=== PATIENT | female | born 1945 ===

== ENCOUNTER 2020-11-25 22:23 | Inpatient (IN) | payer SELFPAY ==
[2020-11-25] MEDS ORDERED: ASPIRIN 325 MG TAB PO ONE (22:52)
--- NOTE | 2020-11-25 23:18 | XRay Report ---
XR chest 1V ap INDICATION / CLINICAL INFORMATION: SOB, CP. COMPARISON: None available. FINDINGS: SUPPORT DEVICES: None. HEART /PULMONARY VASCULATURE: No significant abnormality. LUNGS / PLEURA: Diminished lung volumes. Linear opacities within the left midlung likely reflect atel ectasis. There is no focal airspace consolidation. No pleural effusion. No pneumothorax. ADDITIONAL FINDINGS: No significant additional findings. IMPRESSION: Diminished lung volumes with atelectasis. No acute cardiopulmonary abnormality. Signer Name: Ryder Gerard MD Signed: 11/25/2020 11:14 PM Workstation Name: [id number]
[2020-11-25 23:22] LABS: Basophils % (Auto) 0.4 % (0.0-1.8); Eosinophils % (Auto) 0.4 % (0.0-4.3); Hematocrit 30.3 % (30.3-42.9); Hemoglobin 9.6 gm/dl (10.1-14.3); Lymphocytes % (Auto) 12.8 % (13.4-35.0); Mean Corpuscular HGB Conc 32 % (30-34); Mean Corpuscular Volume 98 fl (79-97); Monocytes # (Auto) 0.6 K/mm3 (0.0-0.8); Monocytes % (Auto) 8.4 % (0.0-7.3); Platelet Count 389 K/mm3 (140-440); Red Blood Count 3.11 M/mm3 (3.65-5.03); Red Cell Distribution Width 17.2 % (13.2-15.2)
[2020-11-25 23:38] LABS: Alanine Aminotransferase 297 units/L (7-56); Albumin 3.8 g/dL (3.9-5); BUN/Creatinine Ratio 22; Blood Urea Nitrogen 38 mg/dL (7-17); Hemolysis Index 0
--- NOTE | 2020-11-26 01:05 | Emergency Department Report ---
ED Chest Pain HPI - General Chief Complaint: Chest Pain Stated Complaint: VOMITING/JAMEY/CHEST PAIN Time Seen by Provider: 11/26/20 00:31 Source: patient Mode of arrival: Ambulatory Limitations: No Limitations - History of Present Illness Initial Comments: 75-year-old female, history of hypertension, diabetes, A. fib, presents to the ED with chest pain. Patient reports onset last night around 9 PM while at rest. Patient also reports associated shortness of breath. Patient has significant swelling to bilateral feet and lower legs. Patient was seen here 3 days ago for A. fib with RVR. Patient currently on Eliquis. She was discharged from the ED after achieving rate control Cardizem. She was discharged with a prescription for Cardizem. Patient returns tonight with sharp, pleuritic chest pain. Patient denies any palpitations. Patient is visiting from [place]. 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 Patient has been fully vaccinated against COVID-19. Patient's previous visit is under the name: ARYA RAMIREZ MD Complaint: chest pain -: This evening Onset: during rest Pain Location: left chest Pain Radiation: none Severity: mild Severity scale (0 -10): 5 Quality: sharp Consistency: intermittent Improves With: nothing Worsens With: inspiration re: dyspnea. denies: nausea, vomting, diaphoresis Other Symptoms: leg swelling. denies: cough, fever - Related Data Home Medications Medication Instructions Recorded Confirmed Last Taken Amiodarone [Cordarone 200 MG TAB] 100 mg PO DAILY 11/26/20 11/26/20 Unknown Apixaban [Eliquis] 5 mg PO DAILY 11/26/20 11/26/20 Unknown Furosemide [Lasix] 20 mg PO QDAY 11/26/20 11/26/20 Unknown Nebivolol (Nf) [Bystolic (Nf)] 2.5 mg PO DAILY 11/26/20 11/26/20 Unknown Telmisartan 40 mg PO DAILY 11/26/20 11/26/20 Unknown dilTIAZem HCL [Diltiazem HCl] 30 mg PO Q8H 11/26/20 11/26/20 Unknown glyBURIDE [Diabeta] 5 mg PO DAILY 11/26/20 11/26/20 Unknown metFORMIN [Glucophage] 850 mg PO BID 11/26/20 11/26/20 Unknown Allergies Allergy/AdvReac Type Severity Reaction Status Date / Time No Known Allergies Allergy Unverified 11/25/20 22:43 Heart Score - HEART Score History: Moderately suspicious EKG: Normal Age: > 65 Risk factors: > 3 risk factors or hx of atherosclerotic disease Troponin: < normal limit HEART Score: 5 - EKG Read Time Time EKG Completed: 22:52 EKG Read Time: 22:57 ED Review of Systems ROS: Stated complaint: VOMITING/JAMEY/CHEST PAIN Other details as noted in HPI Comment: All other systems reviewed and negative Constitutional: denies: fever Respiratory: shortness of breath. denies: cough Cardiovascular: chest pain, edema. denies: palpitations ED Past Medical Hx - Past Medical History Previous Medical History?: Yes Hx Hypertension: Yes Hx Diabetes: Yes Additional medical history: arrythmia - Surgical History Past Surgical History?: Yes Additional Surgical History: Hysterectomy - Medications Home Medications: Home Medications Medication Instructions Recorded Confirmed Last Taken Type Amiodarone [Cordarone 200 MG TAB] 100 mg PO DAILY 11/26/20 11/26/20 Unknown History Apixaban [Eliquis] 5 mg PO DAILY 11/26/20 11/26/20 Unknown History Furosemide [Lasix] 20 mg PO QDAY 11/26/20 11/26/20 Unknown History Nebivolol (Nf) [Bystolic (Nf)] 2.5 mg PO DAILY 11/26/20 11/26/20 Unknown History Telmisartan 40 mg PO DAILY 11/26/20 11/26/20 Unknown History dilTIAZem HCL [Diltiazem HCl] 30 mg PO Q8H 11/26/20 11/26/20 Unknown History glyBURIDE [Diabeta] 5 mg PO DAILY 11/26/20 11/26/20 Unknown History metFORMIN [Glucophage] 850 mg PO BID 11/26/20 11/26/20 Unknown History ED Physical Exam - General Limitations: No Limitations General appearance: alert, in no apparent distress - Head Head exam: Present: atraumatic, normocephalic - Eye Eye exam: Present: normal appearance, EOMI - ENT ENT exam: Present: mucous membranes moist - Neck Neck exam: Present: normal inspection - Respiratory Respiratory exam: Present: normal lung sounds bilaterally, other (Slight tachypneic) - Cardiovascular Cardiovascular Exam: Present: regular rate, irregular rhythm - GI/Abdominal GI/Abdominal exam: Present: soft. Absent: distended, tenderness - Extremities Exam Extremities exam: Present: other (2+ pitting edema bilateral lower legs) - Neurological Exam Neurological exam: Present: alert, oriented X3 - Psychiatric Psychiatric exam: Present: normal affect, normal mood - Skin Skin exam: Present: warm, dry, intact, normal color ED Course Vital Signs 11/25/20 11/26/20 11/26/20 22:43 00:37 01:23 Temperature 97.9 F 97.9 F Pulse Rate 50 L 60 Respiratory 26 H 20 20 Rate Blood Pressure 102/55 97/64 [Right] O2 Sat by Pulse 97 99 99 Oximetry 11/26/20 02:18 Temperature Pulse Rate 75 Respiratory 20 Rate Blood Pressure 125/71 [Right] O2 Sat by Pulse 99 Oximetry - Reevaluation(s) Reevaluation #1: 11/26/20 01:08 BUN and creatinine were 31 and 0.9 on 11/22/2020. Reevaluation #2: 11/26/20 02:14 VQ scan ordered. [facility] [place] Med tech called; states meds for VQ scan expires at 3 AM, will order more. Pt likely won't be scanned until around 6 AM. ED Medical Decision Making - Lab Data Result diagrams: 11/25/20 22:55 11/26/20 01:09 - EKG Data -: EKG Interpreted by [place] EKG shows normal: QRS complexes, ST-T waves Rate: normal - EKG Data Interpretation: other (Atrial fibrillation) - Radiology Data Radiology results: report reviewed, image reviewed - Medical Decision Making 75-year-old female presents to ED with chest pain and shortness of breath. EKG shows A. fib, normal rate. Patient has history of A. fib. Patient reported sharp pleuritic chest pain. D-dimer elevated. Patient also has some acute renal failure, so CTA chest contraindicated. VQ scan was ordered, however unable to be performed due to nuclear medicine technologist having to order more medication for the study. It will be done later in the morning. Troponin within normal limits. Patient also has some elevations in her LFTs, no known liver disease. She also has an INR of 3. Potassium is 6.1, patient has been given hyperkalemia treatment protocol. Patient shows evidence of volume overload, with elevated BNP and significant peripheral edema. She will be admitted by hospitalist, Dr. Medina, for further management. - Differential Diagnosis ACS, CHF, PE Critical care attestation.: If time is entered above; I have spent that time in minutes in the direct care of this critically ill patient, excluding procedure time. ED Disposition Clinical Impression: Acute chest pain, Acute renal failure, Hyperkalemia, Coagulopathy, Elevated liver enzymes Disposition: OP ADMIT IP TO THIS HOSP Is pt being admited?: Yes Condition: Stable Time of Disposition: 02:29
[2020-11-26 01:31] LABS: INR 3.01 (0.87-1.13); Partial Thromboplastin Time 30.8 Sec. (24.2-36.6)
[2020-11-26] MEDS ORDERED: INSULIN REGULAR, HUMAN 100 UNITS/1 ML IV ONE (02:04)
[2020-11-26] MEDS ORDERED: CALCIUM GLUCONATE 1,000 MG in SODIUM CHLORIDE 0.9% 100 ML IV ONE (02:04)
[2020-11-26] MEDS ORDERED: DEXTROSE 50% IN WATER (25GM) 50 ML SYRINGE IV ONE (02:04)
[2020-11-26] MEDS ORDERED: SODIUM POLYSTYRENE 15 GM/60 ML ORAL LIQD PO ONE (02:05)
[2020-11-26] MEDS ORDERED: traMADol 50 MG TAB PO PRN (02:29)
[2020-11-26] MEDS ORDERED: DEXTROSE 50% IN WATER (25GM) 50 ML SYRINGE IV PRN (02:29)
[2020-11-26] MEDS ORDERED: MORPHINE 2 MG/1 ML INJ IV PRN (02:29)
[2020-11-26] MEDS ORDERED: ONDANSETRON 4 MG/2 ML INJ IV PRN (02:29)
[2020-11-26] MEDS ORDERED: ACETAMINOPHEN 325 MG TAB PO PRN ×2 (02:29)
--- NOTE | 2020-11-26 02:41 | History and Physical Report ---
History of Present Illness Date of examination: 11/26/20 Date of admission: 11/26/2020 Chief complaint: Chest pain abdominal pain History of present illness: 75-year-old female with past medical history of hypertension, diabetes, A. fib, presents to the ED with chest pain since 9 PM while at rest. Patient also reports associated shortness of breath and significant swelling to bilateral feet and lower legs. Patient was seen here 3 days ago for A. fib with RVR. Patient currently on Eliquis. She was discharged from the ED after achieving rate control Cardizem. She was discharged with a prescription for Cardizem. Patient returns tonight with sharp, pleuritic chest pain. Patient denies any palpitations. Patient is visiting from [place]. 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 Patient has been fully vaccinated against COVID-19. Patient's previous visit is under the name: ARYA RAMIREZ Past History Past Medical History: diabetes, hypertension, other (Arrhythmia) Medications and Allergies Allergies Allergy/AdvReac Type Severity Reaction Status Date / Time No Known Allergies Allergy Unverified 11/25/20 22:43 Home Medications Medication Instructions Recorded Confirmed Last Taken Type Apixaban [Eliquis] 5 mg PO DAILY 11/26/20 11/26/20 Unknown History Active Meds: Active Medications Acetaminophen (Acetaminophen 325 Mg Tab) 650 mg PO Q4H PRN PRN Reason: Pain MILD(1-3)/Fever >100.5/LOPEZ Acetaminophen (Acetaminophen 325 Mg Tab) 650 mg PO Q6H PRN PRN Reason: Pain, Mild (1-3) Albuterol/Ipratropium (Ipratropium/Albuterol Sulfate 3 Ml Ampul.Neb) 1 ampul IH Q6HRT [facility] Aspirin (Aspirin Ec 325 Mg Tab) 325 mg PO QDAY CARLEEN Atorvastatin Calcium (Atorvastatin 40 Mg Tab) 40 mg PO QHS [facility] Dextrose (Dextrose 50% In Water (25gm) 50 Ml Syringe) 50 ml IV Q30MIN PRN; Protocol PRN Reason: Hypoglycemia Insulin Human Lispro (Insulin Lispro 100 Unit/Ml) 0 unit SUB-Q ACHS CARLEEN; Protocol Morphine Sulfate (Morphine 2 Mg/1 Ml Inj) 2 mg IV Q4H PRN PRN Reason: Pain, Moderate (4-6) Ondansetron HCl (Ondansetron 4 Mg/2 Ml Inj) 4 mg IV Q8H PRN PRN Reason: Nausea And Vomiting Pantoprazole Sodium (Pantoprazole 40 Mg Tab) 40 mg PO QDAY CARLEEN Sodium Chloride (Sodium Chloride 0.9% 10 Ml Flush Syringe) 10 ml IV BID ACRLEEN Sodium Chloride (Sodium Chloride 0.9% 10 Ml Flush Syringe) 10 ml IV PRN PRN PRN Reason: LINE FLUSH Sodium Chloride (Sodium Chloride 0.9% 10 Ml Flush Syringe) 10 ml IV PRN PRN PRN Reason: LINE FLUSH Sodium Polystyrene Sulfonate (Sodium Polystyrene 15 Gm/60 Ml Oral Liqd) 30 gm PO Q4H CARLEEN Stop: 11/26/20 11:01 Tramadol HCl (Tramadol 50 Mg Tab) 50 mg PO Q6H PRN PRN Reason: Pain, Moderate (4-6) Review of Systems Cardiovascular: chest pain, edema, shortness of breath, dyspnea on exertion Respiratory: shortness of breath, dyspnea on exertion Gastrointestinal: abdominal pain Exam - Constitutional Vitals: Temp Pulse Resp BP Pulse Ox 97.9 F 75 20 125/71 99 11/26/20 00:37 11/26/20 02:18 11/26/20 02:18 11/26/20 02:18 11/26/20 02:18 General appearance: Present: no acute distress, well-nourished - EENT Eyes: Present: PERRL ENT: hearing intact, clear oral mucosa - Neck Neck: Present: supple, normal ROM - Respiratory Respiratory effort: normal Respiratory: bilateral: diminished - Cardiovascular Heart Sounds: Present: S1 & S2. Absent: rub, click - Extremities Extremities: pulses symmetrical Extremity abnormal: edema Peripheral Pulses: within normal limits - Abdominal General gastrointestinal: Present: soft, non-tender, non-distended, normal bowel sounds Female genitourinary: Present: normal - Integumentary Integumentary: Present: clear, warm, dry - Musculoskeletal Musculoskeletal: gait normal, strength equal bilaterally - Psychiatric Psychiatric: appropriate mood/affect, intact judgment & insight - Neurologic Neurologic: CNII-XII intact, moves all extremities HEART Score - HEART Score Troponin: Troponin T < 0.010 ng/mL (0.00-0.029) 11/26/20 01:42 Results - Labs CBC & Chem 7: 11/25/20 22:55 11/26/20 01:09 Labs: Laboratory Last Values WBC 7.5 K/mm3 (4.5-11.0) 11/25/20 22:55 RBC 3.11 M/mm3 (3.65-5.03) L 11/25/20 22:55 Hgb 9.6 gm/dl (10.1-14.3) L 11/25/20 22:55 Hct 30.3 % (30.3-42.9) 11/25/20 22:55 MCV 98 fl (79-97) H 11/25/20 22:55 MCH 31 pg (28-32) 11/25/20 22:55 MCHC 32 % (30-34) 11/25/20 22:55 RDW 17.2 % (13.2-15.2) H 11/25/20 22:55 Plt Count 389 K/mm3 (140-440) 11/25/20 22:55 Lymph % (Auto) 12.8 % (13.4-35.0) L 11/25/20 22:55 [place] % (Auto) 8.4 % (0.0-7.3) H 11/25/20 22:55 Eos % (Auto) 0.4 % (0.0-4.3) 11/25/20 22:55 Baso % (Auto) 0.4 % (0.0-1.8) 11/25/20 22:55 Lymph # (Auto) 1.0 K/mm3 (1.2-5.4) L 11/25/20 22:55 [place] # (Auto) 0.6 K/mm3 (0.0-0.8) 11/25/20 22:55 Eos # (Auto) 0.0 K/mm3 (0.0-0.4) 11/25/20 22:55 Baso # (Auto) 0.0 K/mm3 (0.0-0.1) 11/25/20 22:55 Seg Neutrophils % 78.0 % (40.0-70.0) H 11/25/20 22:55 Seg Neutrophils # 5.9 K/mm3 (1.8-7.7) 11/25/20 22:55 PT 31.4 Sec. (12.2-14.9) H 11/26/20 01:09 INR 3.01 (0.87-1.13) H 11/26/20 01:09 APTT 30.8 Sec. (24.2-36.6) 11/26/20 01:09 D-Dimer 5721.78 ng/mlDDU (0-234) H 11/26/20 01:09 Sodium 131 mmol/L (137-145) L 11/25/20 22:55 Potassium 6.1 mmol/L (3.6-5.0) H* 11/26/20 01:09 Chloride 95.5 mmol/L (98-107) L 11/25/20 22:55 Carbon Dioxide 14 mmol/L (22-30) L 11/25/20 22:55 Anion Gap 28 mmol/L 11/25/20 22:55 BUN 38 mg/dL (7-17) H 11/25/20 22:55 Creatinine 1.7 mg/dL (0.6-1.2) H 11/25/20 22:55 Estimated GFR 29 ml/min 11/25/20 22:55 BUN/Creatinine Ratio 22 % 11/25/20 22:55 Glucose 165 mg/dL (65-100) H 11/25/20 22:55 Calcium 8.0 mg/dL (8.4-10.2) L 11/25/20 22:55 Total Bilirubin 1.00 mg/dL (0.1-1.2) 11/25/20 22:55 AST 271 units/L (5-40) H 11/25/20 22:55 ALT 297 units/L (7-56) H 11/25/20 22:55 Alkaline Phosphatase 161 units/L (35-129) H 11/25/20 22:55 Troponin T < 0.010 ng/mL (0.00-0.029) 11/26/20 01:42 NT-Pro-B Natriuret Pep 4891 pg/mL (0-900) H 11/26/20 01:09 Total Protein 6.4 g/dL (6.3-8.2) 11/25/20 22:55 Albumin 3.8 g/dL (3.9-5) L 11/25/20 22:55 Albumin/Globulin Ratio 1.5 % 11/25/20 22:55 - Imaging and Cardiology Chest x-ray: report reviewed Assessment and Plan VTE prophylaxis?: Chemical Plan of care discussed with patient/family: Yes - Patient Problems (1) Acute coronary syndrome Status: Acute Plan to address problem: Admit the patient to the medical floor telemetry. Aspirin 81 mg p.o. daily. Lipitor 40 mg p.o. daily. Nitroglycerin as needed. Serial cardiac enzyme. Echocardiogram. Cardiology consult (2) Acute renal failure Status: Acute Plan to address problem: Avoid nephrotoxic drug. Renally dose medication. Reconsult nephrology for evaluation. Recheck BMP in the morning (3) Coagulopathy Status: Acute Plan to address problem: Most likely secondary to Eliquis. We will monitor the patient closely (4) Hyperkalemia Status: Acute Plan to address problem: Patient got insulin 10 units IV x1 dose D50 1 ampoule IV x1 dose calcium gluconate 1 amp/1 g IV x1 dose. Kayexalate 30 g p.o. every 4 hours x3 dose. Nephrology consulted repeat BMP in the morning (5) Elevated liver enzymes Status: Acute Plan to address problem: We will monitor the patient closely repeat LFT in the morning. GI consult (6) Diabetes Status: Acute Plan to address problem: Humalog sliding scale moderate dose Accu-Chek before meals and at bedtime. Diabetic education. We will monitor the patient closely (7) Abdominal pain Status: Acute Plan to address problem: Protonix 40 mg p.o. daily. Zofran 4 mg IV every 6 hours as needed. Will consult GI for evaluation (8) DVT prophylaxis Status: Acute Plan to address problem: Patient is on Eliquis for DVT prophylaxis. Protonix 40 mg p.o. daily for GI prophylaxis. Patient is a full code
[2020-11-26] MEDS: FUROSEMIDE 20 MG/2 ML INJ IV ONE ×2 (03:21→04:32)
[2020-11-26 04:45] LABS: Basophils % (Auto) 0.3 % (0.0-1.8); Hematocrit 27.3 % (30.3-42.9); Hemoglobin 8.7 gm/dl (10.1-14.3); Lymphocytes # (Auto) 0.5 K/mm3 (1.2-5.4); Lymphocytes % (Auto) 6.3 % (13.4-35.0); Mean Corpuscular HGB Conc 32 % (30-34); Mean Corpuscular Volume 98 fl (79-97); Monocytes # (Auto) 0.6 K/mm3 (0.0-0.8); Platelet Count 346 K/mm3 (140-440); Red Blood Count 2.79 M/mm3 (3.65-5.03); Red Cell Distribution Width 17.1 % (13.2-15.2)
[2020-11-26] MEDS: SODIUM POLYSTYRENE 15 GM/60 ML ORAL LIQD PO SCH ×3 (05:50→12:58)
--- NOTE | 2020-11-26 07:49 | Nuclear Medicine Report ---
Perfusion Scan HISTORY: chest pain. TECHNIQUE: Patient was given 5.5 mCi of technetium MAA. COMPARISON: Chest x-ray from yesterday FINDINGS: Normal symmetric perfusion bilaterally. IMPRESSION: Unremarkable exam. Signer Name: Miguel Mendoza MD Signed: 11/26/2020 7:45 AM Workstation Name: [id number]
[2020-11-26] MEDS: INSULIN LISPRO 100 UNIT/ML SUB-Q SCH ×4 (08:00→22:09)
[2020-11-26] MEDS: IPRATROPIUM/ALBUTEROL SULFATE 3 ML AMPUL.NEB IH SCH ×3 (08:42→21:25)
--- NOTE | 2020-11-26 09:52 | Electrocardiograph Report ---
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
[2020-11-26] MEDS ORDERED: ASPIRIN 81 MG TAB CHEW PO SCH (10:00)
[2020-11-26] MEDS ORDERED: CALCIUM CHLORIDE 1,000 MG/10 ML SYRINGE IV ONE (10:09)
[2020-11-26] MEDS ORDERED: SODIUM BICARB 8.4% 50 MEQ/50 ML SYRINGE IV SCH (10:30)
--- NOTE | 2020-11-26 10:32 | Gastroenterology Consultation ---
History of Present Illness - Reason for Consult Consult date: 11/26/20 Anemia, Abnl LFTs Requesting physician: LE SANCHEZ - History of Present Illness The patient has been to the ER twice in the past week for chest pain/A fib with RVR. She has stable labs 3 days apart, but was noted to have abnl LFTs as well as mild anemia. She denies RUQ pain, N/V, anorexia, liver disease, jaundice, blood in her stools, or hematemesis. She says she has no weight loss. There is no hx of bowel surgery or CCY. She is not a drinker. She is on new diltiazem, but this was started after elevated LFTs. She has had no imaging or hepatitis studies in the computer system (is under 2 different names). Past History Past Medical History: atrial fib, diabetes, hypertension, other (Arrhythmia) Past Surgical History: No surgical history Social history: denies: smoking, alcohol abuse Family history: no significant family history Medications and Allergies Allergies Allergy/AdvReac Type Severity Reaction Status Date / Time No Known Allergies Allergy Unverified 11/25/20 22:43 Home Medications Medication Instructions Recorded Confirmed Last Taken Type Amiodarone [Cordarone 200 MG TAB] 100 mg PO DAILY 11/26/20 11/26/20 Unknown History Apixaban [Eliquis] 5 mg PO DAILY 11/26/20 11/26/20 Unknown History Furosemide [Lasix] 20 mg PO QDAY 11/26/20 11/26/20 Unknown History Nebivolol (Nf) [Bystolic (Nf)] 2.5 mg PO DAILY 11/26/20 11/26/20 Unknown History Telmisartan 40 mg PO DAILY 11/26/20 11/26/20 Unknown History dilTIAZem HCL [Diltiazem HCl] 30 mg PO Q8H 11/26/20 11/26/20 Unknown History glyBURIDE [Diabeta] 5 mg PO DAILY 11/26/20 11/26/20 Unknown History metFORMIN [Glucophage] 850 mg PO BID 11/26/20 11/26/20 Unknown History Active Meds: Active Medications Acetaminophen (Acetaminophen 325 Mg Tab) 650 mg PO Q4H PRN PRN Reason: Pain MILD(1-3)/Fever >100.5/LOPEZ Albuterol/Ipratropium (Ipratropium/Albuterol Sulfate 3 Ml Ampul.Neb) 1 ampul IH Q6HRT [facility] Last Admin: 11/26/20 08:42 Dose: 1 ampul Documented by: Aspirin (Aspirin 81 Mg Tab Chew) 81 mg PO QDAY [facility] Dextrose (Dextrose 50% In Water (25gm) 50 Ml Syringe) 0 ml IV Q30MIN PRN; Protocol PRN Reason: Hypoglycemia Furosemide (Furosemide 40 Mg/4 Ml Inj) 40 mg IV 0600,1800 [facility] Calcium Chloride 1,000 mg/ (Sodium Chloride) 110 mls @ 660 mls/hr IV ONCE ONE Stop: 11/26/20 11:09 Insulin Human Lispro (Insulin Lispro 100 Unit/Ml) 0 unit SUB-Q ACHS CARLEEN; Protocol Morphine Sulfate (Morphine 2 Mg/1 Ml Inj) 2 mg IV Q4H PRN PRN Reason: Pain, Moderate (4-6) Ondansetron HCl (Ondansetron 4 Mg/2 Ml Inj) 4 mg IV Q8H PRN PRN Reason: Nausea And Vomiting Pantoprazole Sodium (Pantoprazole 40 Mg Tab) 40 mg PO QDAY [facility] Sodium Bicarbonate (Sodium Bicarb 8.4% 50 Meq/50 Ml Syringe) 50 meq IV ONCE CARLEEN Stop: 11/26/20 14:00 Sodium Chloride (Sodium Chloride 0.9% 10 Ml Flush Syringe) 10 ml IV BID CARLEEN Sodium Chloride (Sodium Chloride 0.9% 10 Ml Flush Syringe) 10 ml IV PRN PRN PRN Reason: LINE FLUSH Sodium Polystyrene Sulfonate (Sodium Polystyrene 15 Gm/60 Ml Oral Liqd) 30 gm PO Q4H [facility] Stop: 11/26/20 11:01 Last Admin: 11/26/20 05:50 Dose: 30 gm Documented by: Tramadol HCl (Tramadol 50 Mg Tab) 50 mg PO Q6H PRN PRN Reason: Pain, Moderate (4-6) I HAVE REVIEWED/RECONCILED MEDICATIONS Review of Systems - Review of Systems All systems: negative (as noted in the HPI.) Exam - Constitutional Vital Signs: Temp Pulse Resp BP Pulse Ox 98.4 F 111 H 19 108/74 98 11/26/20 08:23 11/26/20 08:44 11/26/20 08:44 11/26/20 08:23 11/26/20 08:43 General appearance: no acute distress - EENT Eyes: PERRL, EOM intact ENT: hearing intact, clear oral mucosa, dentition normal - Neck Neck: supple, normal ROM - Respiratory Respiratory effort: normal Respiratory: bilateral: CTA - Cardiovascular Rhythm: irregularly irregular Heart Sounds: Present: S1 & S2, systolic murmur Extremities: no ischemia, No edema - Gastrointestinal General gastrointestinal: Present: soft, non-tender, non-distended - Integumentary Integumentary: Present: clear, warm, dry - Neurologic Neurological: alert and oriented x3 - Labs CBC & Chem 7: 11/26/20 04:35 11/26/20 01:09 Lab Results: Laboratory Results - last 24 hr 11/25/20 11/25/20 11/26/20 22:55 22:55 01:09 WBC 7.5 RBC 3.11 L Hgb 9.6 L Hct 30.3 MCV 98 H MCH 31 MCHC 32 RDW 17.2 H Plt Count 389 Lymph % (Auto) 12.8 L [place] % (Auto) 8.4 H Eos % (Auto) 0.4 Baso % (Auto) 0.4 Lymph # (Auto) 1.0 L [place] # (Auto) 0.6 Eos # (Auto) 0.0 Baso # (Auto) 0.0 Seg Neutrophils % 78.0 H Seg Neutrophils # 5.9 PT INR APTT D-Dimer Sodium 131 L Potassium 6.4 H* 6.1 H* Chloride 95.5 L Carbon Dioxide 14 L Anion Gap 28 BUN 38 H Creatinine 1.7 H Estimated GFR 29 BUN/Creatinine Ratio 22 Glucose 165 H POC Glucose Calcium 8.0 L Total Bilirubin 1.00 AST 271 H ALT 297 H Alkaline Phosphatase 161 H Troponin T < 0.010 NT-Pro-B Natriuret Pep Total Protein 6.4 Albumin 3.8 L Albumin/Globulin Ratio 1.5 11/26/20 11/26/20 11/26/20 01:09 01:09 01:42 WBC RBC Hgb Hct MCV MCH MCHC RDW Plt Count Lymph % (Auto) [place] % (Auto) Eos % (Auto) Baso % (Auto) Lymph # (Auto) [place] # (Auto) Eos # (Auto) Baso # (Auto) Seg Neutrophils % Seg Neutrophils # PT 31.4 H INR 3.01 H APTT 30.8 D-Dimer 5721.78 H Sodium Potassium Chloride Carbon Dioxide Anion Gap BUN Creatinine Estimated GFR BUN/Creatinine Ratio Glucose POC Glucose Calcium Total Bilirubin AST ALT Alkaline Phosphatase Troponin T < 0.010 NT-Pro-B Natriuret Pep 4891 H Total Protein Albumin Albumin/Globulin Ratio 11/26/20 11/26/20 11/26/20 04:24 04:35 04:35 WBC 8.7 RBC 2.79 L Hgb 8.7 L Hct 27.3 L MCV 98 H MCH 31 MCHC 32 RDW 17.1 H Plt Count 346 Lymph % (Auto) 6.3 L [place] % (Auto) 7.0 Eos % (Auto) 0.0 Baso % (Auto) 0.3 Lymph # (Auto) 0.5 L [place] # (Auto) 0.6 Eos # (Auto) 0.0 Baso # (Auto) 0.0 Seg Neutrophils % 86.4 H Seg Neutrophils # 7.5 PT INR APTT D-Dimer Sodium Potassium Chloride Carbon Dioxide Anion Gap BUN Creatinine Estimated GFR BUN/Creatinine Ratio Glucose POC Glucose 245 H Calcium Total Bilirubin AST ALT Alkaline Phosphatase Troponin T < 0.010 NT-Pro-B Natriuret Pep Total Protein Albumin Albumin/Globulin Ratio 11/26/20 08:23 WBC RBC Hgb Hct MCV MCH MCHC RDW Plt Count Lymph % (Auto) [place] % (Auto) Eos % (Auto) Baso % (Auto) Lymph # (Auto) [place] # (Auto) Eos # (Auto) Baso # (Auto) Seg Neutrophils % Seg Neutrophils # PT INR APTT D-Dimer Sodium Potassium Chloride Carbon Dioxide Anion Gap BUN Creatinine Estimated GFR BUN/Creatinine Ratio Glucose POC Glucose 111 H Calcium Total Bilirubin AST ALT Alkaline Phosphatase Troponin T NT-Pro-B Natriuret Pep Total Protein Albumin Albumin/Globulin Ratio Assessment and Plan - Patient Problems (1) Iron deficiency anemia due to chronic blood loss Current Visit: Yes Status: Acute Plan to address problem: - Will send basic serologies and get RUQ US. - Labs appear stable over the past week, and not indicative of worsening hepatic function. (2) Elevated liver enzymes Current Visit: No Status: Acute Plan to address problem: - The patient takes chronic Eliquis but has no gross bleeding. - Will place on PPI, and MVI, and check iron levels. - Consideration of endoscopy based on cardiac function as well as clinical course.
--- NOTE | 2020-11-26 10:57 | Consultation ---
History of Present Illness Consult date: 11/26/20 Consult reason: chest pain History of present illness: 75-year old Afghan speaking woman visiting from [place] who presents to this hospital with chest pain, shortness of breath, with nausea and vomiting. A ventilation perfusion scan is negative for pulmonary embolism. Chest x-ray shows no acute process. Labs done in the ED shows multiple metabolic abnormalities including acute kidney injury with a potassium of 6.4. There was elevated liver enzymes, anemia, HCT of 27 and an INR of 3.0. An ECG is atrial fibrillation with a well controlled ventricular rate. Records shows the patient has a history of chronic atrial fibrillation and CHF. Home medications list she takes amiodarone, diltiazem, and eliquis for management of atrial fibrillation. Due to elevated liver enzymes, amiodarone was discontinued in the ED. Past History Past Medical History: atrial fib, diabetes, hypertension Past Surgical History: No surgical history Social history: denies: smoking, alcohol abuse Family history: no significant family history Medications and Allergies Allergies Allergy/AdvReac Type Severity Reaction Status Date / Time No Known Allergies Allergy Unverified 11/25/20 22:43 Home Medications Medication Instructions Recorded Confirmed Last Taken Type Amiodarone [Cordarone 200 MG TAB] 100 mg PO DAILY 11/26/20 11/26/20 Unknown History Apixaban [Eliquis] 5 mg PO DAILY 11/26/20 11/26/20 Unknown History Furosemide [Lasix] 20 mg PO QDAY 11/26/20 11/26/20 Unknown History Nebivolol (Nf) [Bystolic (Nf)] 2.5 mg PO DAILY 11/26/20 11/26/20 Unknown History Telmisartan 40 mg PO DAILY 11/26/20 11/26/20 Unknown History dilTIAZem HCL [Diltiazem HCl] 30 mg PO Q8H 11/26/20 11/26/20 Unknown History glyBURIDE [Diabeta] 5 mg PO DAILY 11/26/20 11/26/20 Unknown History metFORMIN [Glucophage] 850 mg PO BID 11/26/20 11/26/20 Unknown History Active Meds: Active Medications Acetaminophen (Acetaminophen 325 Mg Tab) 650 mg PO Q4H PRN PRN Reason: Pain MILD(1-3)/Fever >100.5/LOPEZ Albuterol/Ipratropium (Ipratropium/Albuterol Sulfate 3 Ml Ampul.Neb) 1 ampul IH Q6HRT [facility] Last Admin: 11/26/20 08:42 Dose: 1 ampul Documented by: Aspirin (Aspirin 81 Mg Tab Chew) 81 mg PO QDAY [facility] Dextrose (Dextrose 50% In Water (25gm) 50 Ml Syringe) 0 ml IV Q30MIN PRN; Protocol PRN Reason: Hypoglycemia Furosemide (Furosemide 40 Mg/4 Ml Inj) 40 mg IV 0600,1800 [facility] Calcium Chloride 1,000 mg/ (Sodium Chloride) 110 mls @ 660 mls/hr IV ONCE ONE Stop: 11/26/20 11:09 Insulin Human Lispro (Insulin Lispro 100 Unit/Ml) 0 unit SUB-Q ACHS [facility]; Protocol Morphine Sulfate (Morphine 2 Mg/1 Ml Inj) 2 mg IV Q4H PRN PRN Reason: Pain, Moderate (4-6) Multivitamins (Multivitamins ,Therapeutic Tab) 1 each PO QDAY [facility] Ondansetron HCl (Ondansetron 4 Mg/2 Ml Inj) 4 mg IV Q8H PRN PRN Reason: Nausea And Vomiting Pantoprazole Sodium (Pantoprazole 40 Mg Tab) 40 mg PO QDAY [facility] Sodium Bicarbonate (Sodium Bicarb 8.4% 50 Meq/50 Ml Syringe) 50 meq IV ONCE [facility] Stop: 11/26/20 14:00 Sodium Chloride (Sodium Chloride 0.9% 10 Ml Flush Syringe) 10 ml IV BID [facility] Sodium Chloride (Sodium Chloride 0.9% 10 Ml Flush Syringe) 10 ml IV PRN PRN PRN Reason: LINE FLUSH Sodium Polystyrene Sulfonate (Sodium Polystyrene 15 Gm/60 Ml Oral Liqd) 30 gm PO Q4H [facility] Stop: 11/26/20 11:01 Last Admin: 11/26/20 05:50 Dose: 30 gm Documented by: Tramadol HCl (Tramadol 50 Mg Tab) 50 mg PO Q6H PRN PRN Reason: Pain, Moderate (4-6) Physical Examination Vital Signs Temp Pulse Resp BP Pulse Ox 97.9 F 50 L 26 H 102/55 97 11/25/20 22:43 11/25/20 22:43 11/25/20 22:43 11/25/20 22:43 11/25/20 22:43 General appearance: no acute distress HEENT: Positive: PERRL Neck: Positive: trachea midline Cardiac: Positive: irregularly irregular Results 11/26/20 04:35 11/26/20 01:09 Cardiac Enzymes 11/25/20 Range/Units 22:55 AST 271 H (5-40) units/L Coagulation 11/26/20 Range/Units 01:09 PT 31.4 H (12.2-14.9) Sec. INR 3.01 H (0.87-1.13) APTT 30.8 (24.2-36.6) Sec. CBC 11/25/20 11/26/20 Range/Units 22:55 04:35 WBC 7.5 8.7 (4.5-11.0) K/mm3 RBC 3.11 L 2.79 L (3.65-5.03) M/mm3 Hgb 9.6 L 8.7 L (10.1-14.3) gm/dl Hct 30.3 27.3 L (30.3-42.9) % Plt Count 389 346 (140-440) K/mm3 Lymph # (Auto) 1.0 L 0.5 L (1.2-5.4) K/mm3 Meade # (Auto) 0.6 0.6 (0.0-0.8) K/mm3 Eos # (Auto) 0.0 0.0 (0.0-0.4) K/mm3 Baso # (Auto) 0.0 0.0 (0.0-0.1) K/mm3 Comprehensive Metabolic Panel 11/25/20 11/26/20 Range/Units 22:55 01:09 Sodium 131 L (137-145) mmol/L Potassium 6.4 H* 6.1 H* (3.6-5.0) mmol/L Chloride 95.5 L (98-107) mmol/L Carbon Dioxide 14 L (22-30) mmol/L BUN 38 H (7-17) mg/dL Creatinine 1.7 H (0.6-1.2) mg/dL Glucose 165 H (65-100) mg/dL Calcium 8.0 L (8.4-10.2) mg/dL AST 271 H (5-40) units/L ALT 297 H (7-56) units/L Alkaline Phosphatase 161 H (35-129) units/L Total Protein 6.4 (6.3-8.2) g/dL Albumin 3.8 L (3.9-5) g/dL Assessment and Plan Shortness of breath Chronic atrial fibrillation on eliquis as an outpatient Elevated liver enzymes amiodarone was discontinued Anemia Acute kidney injury with hyperkalemia Echocardiogram was done today, results are pending. Continue oral anticoagulation and rate controlling agents for chronic atrial fibrillation.
[2020-11-26] MEDS ORDERED: CALCIUM CHLORIDE 1,000 MG in SODIUM CHLORIDE 0.9% 100 ML IV ONE (11:00)
[2020-11-26 11:41] LABS: Calcium 8.6 mg/dL (8.4-10.2)
[2020-11-26] MEDS: PANTOPRAZOLE 40 MG TAB PO SCH (12:59)
[2020-11-26] MEDS: MULTIVITAMINS ,THERAPEUTIC TAB PO SCH (13:01)
[2020-11-26] MEDS: FUROSEMIDE 40 MG/4 ML INJ IV SCH ×2 (13:01→17:35)
[2020-11-26] MEDS ORDERED: dilTIAZem 30 MG TAB PO SCH (14:00)
--- NOTE | 2020-11-26 14:56 | Ultrasound Report ---
ULTRASOUND ABDOMEN, LIMITED INDICATION / CLINICAL INFORMATION: Abnormal LFTs. COMPARISON: None available. FINDINGS: PANCREAS: Visualized portion shows no significant abnormality. AORTA: No significant abnormality. IVC: No significant abnormality. LIVER: The liver is normal in size measuring 15.0 cm .No focal hepatic lesion identified. Hepatopedal blood flow is present within the main portal vein, however the waveform appears pulsatile indicative of possible right heart disease. GALLBLADDER: Surgically absent. BILE DUCTS: No significant abnormality. Common bile duct measures 6 mm. RIGHT KIDNEY: The right kidney measures 9.8 cm. No significant abnormality. FREE FLUID: None. ADDITIONAL FINDINGS: Incidental finding of a right pleural effusion. IMPRESSION: 1. Pulsatile blood flow is present within the main portal vein, concerning for right heart disease. 2. Incidental finding of a right pleural effusion. Scribed by: Debora Handley RDMS, RVT Scribed: 11/26/2020 1:42 PM I have reviewed the images, agree with this report, and edited this report as needed. Signer Name: Ward Casper MD Signed: 11/26/2020 2:51 PM Workstation Name: [id number]
[2020-11-26 15:20] LABS: Hematocrit 27.6 % (30.3-42.9); Hemoglobin 8.8 gm/dl (10.1-14.3); Mean Corpuscular HGB Conc 32 % (30-34); Mean Corpuscular Volume 94 fl (79-97); Platelet Count 384 K/mm3 (140-440); Red Blood Count 2.94 M/mm3 (3.65-5.03); Red Cell Distribution Width 16.6 % (13.2-15.2)
--- NOTE | 2020-11-26 15:30 | Event Note ---
Date: 11/26/20 Patient seen and examined This is a second visit after midnight This is 75-year-old Armenian-speaking female with past medical history of hypertension, diabetes, A. fib, presents to the ED with chest pain since 9 PM while at rest. Patient also reports associated shortness of breath and significant swelling to bilateral feet and lower legs. In the ER work-up shows THERESE, hyperkalemia, normal troponin and elevated BNP Nephrology consulted, patient placed on hyperkalemia protocol Cardiology consulted, 2D echo ordered Discussed plan of care with patient with director of research center by telephone Patient complains of abdominal pain and lower extremity swelling Vitals appears to be stable, potassium level improved CTABL, no wheezes Wait for echocardiogram result, continue IV Lasix for now It took me about 28 minutes to reevaluate and reasses this patient, discussed with RN/CM, review medical documents, lab results, imaging, medication list and placing order.
[2020-11-26 15:36] LABS: INR 2.36 (0.87-1.13)
[2020-11-26 15:37] LABS: Partial Thromboplastin Time 30.9 Sec. (24.2-36.6)
--- NOTE | 2020-11-26 16:22 | Consultation ---
History of Present Illness - Reason for Consult Consult date: 11/26/20 acute renal failure - History of Present Illness This is a 75 year old [place] female visiting from [place] who presented to the hospital for a chief complaint of having shortness of breath, swelling to legs and chest pain that started yesterday. On evaluation patient was noted to have an elevated serum creatinine of 1.7 that veto to 2.1 today. Patient was placed on Lasix 40 mg IV BID. Patient was also noted to be Hyperkalemic for which she received anti-potassium medications. Patient has history of Diabetes Mellitus, Hypertension, Afib and Anemia. Granddaughter interpreted conversations. Patient's son at bedside. We are being consulted for management of this patient's Acute Renal Failure. Past History Past Medical History: atrial fib, diabetes, hypertension Past Surgical History: No surgical history Social history: denies: smoking, alcohol abuse Family history: no significant family history Medications and Allergies Allergies Allergy/AdvReac Type Severity Reaction Status Date / Time No Known Allergies Allergy Unverified 11/25/20 22:43 Home Medications Medication Instructions Recorded Confirmed Last Taken Type Amiodarone [Cordarone 200 MG TAB] 100 mg PO DAILY 11/26/20 11/26/20 Unknown History Apixaban [Eliquis] 5 mg PO DAILY 11/26/20 11/26/20 Unknown History Furosemide [Lasix] 20 mg PO QDAY 11/26/20 11/26/20 Unknown History Nebivolol (Nf) [Bystolic (Nf)] 2.5 mg PO DAILY 11/26/20 11/26/20 Unknown History Telmisartan 40 mg PO DAILY 11/26/20 11/26/20 Unknown History dilTIAZem HCL [Diltiazem HCl] 30 mg PO Q8H 11/26/20 11/26/20 Unknown History glyBURIDE [Diabeta] 5 mg PO DAILY 11/26/20 11/26/20 Unknown History metFORMIN [Glucophage] 850 mg PO BID 11/26/20 11/26/20 Unknown History Active Meds: Active Medications Acetaminophen (Acetaminophen 325 Mg Tab) 650 mg PO Q4H PRN PRN Reason: Pain MILD(1-3)/Fever >100.5/LOPEZ Albuterol/Ipratropium (Ipratropium/Albuterol Sulfate 3 Ml Ampul.Neb) 1 ampul IH Q6HRT [facility] Last Admin: 11/26/20 13:48 Dose: 1 ampul Documented by: Apixaban (Apixaban 5 Mg Tab) 5 mg PO Q12HR [facility]; Protocol Dextrose (Dextrose 50% In Water (25gm) 50 Ml Syringe) 0 ml IV Q30MIN PRN; Protocol PRN Reason: Hypoglycemia Furosemide (Furosemide 40 Mg/4 Ml Inj) 40 mg IV 0600,1800 [facility] Last Admin: 11/26/20 13:01 Dose: 40 mg Documented by: Insulin Human Lispro (Insulin Lispro 100 Unit/Ml) 0 unit SUB-Q ACHS [facility]; Protocol Last Admin: 11/26/20 11:46 Dose: Not Given Documented by: Isosorbide Dinitrate/Hydralazine (Isosorb Dinit/Hydralazine 20-37.5mg Tab) 1 each PO Q8HR [facility] Metoprolol Tartrate (Metoprolol Tartrate 25 Mg Tab) 25 mg PO Q8H [facility] Morphine Sulfate (Morphine 2 Mg/1 Ml Inj) 2 mg IV Q4H PRN PRN Reason: Pain, Moderate (4-6) Multivitamins (Multivitamins ,Therapeutic Tab) 1 each PO QDAY [facility] Last Admin: 11/26/20 13:01 Dose: 1 each Documented by: Ondansetron HCl (Ondansetron 4 Mg/2 Ml Inj) 4 mg IV Q8H PRN PRN Reason: Nausea And Vomiting Pantoprazole Sodium (Pantoprazole 40 Mg Tab) 40 mg PO QDAY [facility] Last Admin: 11/26/20 12:59 Dose: 40 mg Documented by: Sodium Chloride (Sodium Chloride 0.9% 10 Ml Flush Syringe) 10 ml IV BID [facility] Last Admin: 11/26/20 12:59 Dose: 10 ml Documented by: Sodium Chloride (Sodium Chloride 0.9% 10 Ml Flush Syringe) 10 ml IV PRN PRN PRN Reason: LINE FLUSH Tramadol HCl (Tramadol 50 Mg Tab) 50 mg PO Q6H PRN PRN Reason: Pain, Moderate (4-6) Review of Systems Constitutional: fatigue, no weight loss, no weight gain, no fever, no chills, no sweats, no night sweats Ears, nose, mouth and throat: no ear pain, no ear discharge, no tinnitis, no decreased hearing, no nose pain, no nasal congestion, no nasal discharge Cardiovascular: chest pain, rapid/irregular heart beat, edema, shortness of breath, leg edema Respiratory: shortness of breath, dyspnea on exertion, no cough with sputum, no excessive sputum, no hemoptysis Gastrointestinal: no abdominal pain, no nausea, no vomiting, no diarrhea, no constipation, no change in bowel habits, no hematemesis Genitourinary Female: no pelvic pain, no flank pain, no menorrhagia, no dysuria, no urinary frequency, no stress incontinence, no post void dribbling Rectal: no pain, no incontinence, no bleeding, no itching Musculoskeletal: no neck stiffness, no neck pain, no shooting arm pain, no arm numbness/tingling, no low back pain, no shooting leg pain Integumentary: no rash, no pruritis, no redness, no sores, no wounds, no jaundice Neurological: weakness, no head injury, no transient paralysis, no paralysis, no parathesias, no numbness, no tingling, no seizures, no syncope Psychiatric: no memory loss, no change in sleep habits, no sleep disturbances, no insomnia, no hypersomnia, no change in appetite, no change in libido Endocrine: no cold intolerance, no heat intolerance, no polyphagia, no excessive thirst, no polydipsia, no polyuria, no nocturia Hematologic/Lymphatic: no easy bruising, no easy bleeding, no lymphadenopathy, no lymphedema Exam - Vital Signs Vital signs: Vital Signs Temp Pulse Resp BP Pulse Ox 97.9 F 50 L 26 H 102/55 97 11/25/20 22:43 11/25/20 22:43 11/25/20 22:43 11/25/20 22:43 11/25/20 22:43 - General Appearance General appearance: well-developed, appears stated age EENT: ATNC, hearing intact, vision intact Neck: Present: neck supple, trachea midline Respiratory: Decreased Breath Sounds Heart: S1S2 Gastrointestinal: Present: normoactive bowel sounds Integumentary: warm and dry Neurologic: other (Awake and alert) Musculoskeletal: Present: other (has 2+ edema to BLE) Results - Lab Results 11/26/20 14:42 11/26/20 14:42 Most recent lab results Calcium 8.6 mg/dL (8.4-10.2) 11/26/20 10:49 Assessment and Plan Assessment: Chest Pain Acute Renal Failure on CKD Hypertension Diabetes Mellitus Anemia Hyperkalemia, Improved Plan: Renal labs reviewed. Serum creatinine 2.1 today, yesterday's was 1.7. Baseline serum creatinine unknown. Patient states she was told in [place] that she had abnormal renal labs but never followed up with a kidney doctor Rise in serum creatinine could be due to Lasix 40 mg IV BID, may need to decrease if serum creatinine continues to rise Obtain renal ultrasound Obtain urine lytes, protein and eosinophils Avoid nephrotoxic agents Monitor I/O's daily Obtain daily weights Monitor renal function closely
[2020-11-26] MEDS: ISOSORB DINIT/HYDRALAZINE 20-37.5MG TAB PO SCH ×2 (17:35→22:08)
[2020-11-26] MEDS: METOPROLOL TARTRATE 25 MG TAB PO SCH ×2 (17:35→22:08)
[2020-11-26 18:17] LABS: Calcium 8.7 mg/dL (8.4-10.2); Chol/HDL Ratio 4.69 %
[2020-11-26] MEDS: APIXABAN 5 MG TAB PO SCH (22:08)
[2020-11-27] MEDS: FUROSEMIDE 40 MG/4 ML INJ IV SCH ×2 (05:49→17:00)
[2020-11-27] MEDS: ISOSORB DINIT/HYDRALAZINE 20-37.5MG TAB PO SCH ×3 (05:49→22:13)
[2020-11-27 06:14] LABS: Basophils # (Auto) 0.1 K/mm3 (0.0-0.1); Basophils % (Auto) 0.9 % (0.0-1.8); Eosinophils # (Auto) 0.1 K/mm3 (0.0-0.4); Eosinophils % (Auto) 1.1 % (0.0-4.3); Hematocrit 26.7 % (30.3-42.9); Hemoglobin 8.6 gm/dl (10.1-14.3); Lymphocytes % (Auto) 16.3 % (13.4-35.0); Mean Corpuscular HGB Conc 32 % (30-34); Mean Corpuscular Volume 94 fl (79-97); Monocytes # (Auto) 0.5 K/mm3 (0.0-0.8); Monocytes % (Auto) 8.7 % (0.0-7.3); Platelet Count 339 K/mm3 (140-440); Red Blood Count 2.85 M/mm3 (3.65-5.03); Red Cell Distribution Width 16.9 % (13.2-15.2)
[2020-11-27 06:38] LABS: Calcium 8.6 mg/dL (8.4-10.2)
[2020-11-27 07:48] LABS: Albumin 3.3 g/dL (3.9-5)
[2020-11-27] MEDS: IPRATROPIUM/ALBUTEROL SULFATE 3 ML AMPUL.NEB IH SCH ×3 (07:54→20:00)
[2020-11-27] MEDS: INSULIN LISPRO 100 UNIT/ML SUB-Q SCH ×4 (08:31→22:53)
--- NOTE | 2020-11-27 09:49 | Progress Note ---
Assessment and Plan Chest Pain Acute Renal Failure on CKD Hypertension Diabetes Mellitus Anemia Hyperkalemia, Improved Plan: unknown Cr baseline, Stable since yesterday, no UOP recorded Patient states she was told in [place] that she had abnormal renal labs but never followed up with a kidney doctor cont diuretics Obtain renal ultrasound-pending Obtain urine lytes, protein and eosinophils-pending Avoid nephrotoxic agents Monitor I/O's daily Obtain daily weights Monitor renal function closely Subjective Date of service: 11/27/20 Principal diagnosis: renal failure Interval history: tolerating diuretics Objective - Vital Signs Vital signs: Vital Signs - 12hr 11/26/20 11/26/20 11/26/20 22:00 22:04 22:05 Temperature 98.3 F Pulse Rate 108 H 102 H Pulse Rate [ Anterior Bilateral Throughout] Respiratory 20 20 Rate Respiratory Rate [Anterior Bilateral Throughout] Blood Pressure 107/61 O2 Sat by Pulse 97 96 Oximetry 11/26/20 11/27/20 11/27/20 22:08 03:09 03:15 Temperature 97.4 F L Pulse Rate 115 H 108 H 107 H Pulse Rate [ Anterior Bilateral Throughout] Respiratory 16 Rate Respiratory Rate [Anterior Bilateral Throughout] Blood Pressure 107/61 102/59 O2 Sat by Pulse 98 Oximetry 11/27/20 11/27/20 11/27/20 05:49 07:58 08:20 Temperature 97.9 F Pulse Rate 110 H 110 H Pulse Rate [ Anterior Bilateral Throughout] Respiratory 18 Rate Respiratory Rate [Anterior Bilateral Throughout] Blood Pressure 102/59 98/57 O2 Sat by Pulse 97 96 Oximetry 11/27/20 08:24 Temperature Pulse Rate Pulse Rate [ 110 H Anterior Bilateral Throughout] Respiratory Rate Respiratory 18 Rate [Anterior Bilateral Throughout] Blood Pressure O2 Sat by Pulse Oximetry - General Appearance General appearance: well-developed, well-nourished EENT: ATNC, PERRL, mucous membranes moist Neck: no JVD, no carotid bruit Respiratory: Present: Decreased Breath Sounds Cardiology: regular, S1S2 Gastrointestinal: normoactive bowel sounds, no absent bowel sounds, no tenderness, no distended Integumentary: no rash, warm and dry Neurologic: no focal deficit, no asterixis Musculoskeletal: other Psychiatric: cooperative - Lab 11/27/20 05:35 11/27/20 05:35 Most recent lab results Calcium 8.6 mg/dL (8.4-10.2) 11/27/20 05:35 Calcium 9.0 mg/dL (8.4-10.2) 11/27/20 05:35 Phosphorus 5.00 mg/dL (2.5-4.5) H 11/27/20 05:35 Medications & Allergies - Medications Allergies/Adverse Reactions: Allergies No Known Allergies Allergy (Unverified 11/25/20 22:43) Home Medications: Home Medications Medication Instructions Recorded Confirmed Last Taken Type Amiodarone [Cordarone 200 MG TAB] 100 mg PO DAILY 11/26/20 11/26/20 Unknown History Apixaban [Eliquis] 5 mg PO DAILY 11/26/20 11/26/20 Unknown History Furosemide [Lasix] 20 mg PO QDAY 11/26/20 11/26/20 Unknown History Nebivolol (Nf) [Bystolic (Nf)] 2.5 mg PO DAILY 11/26/20 11/26/20 Unknown History Telmisartan 40 mg PO DAILY 11/26/20 11/26/20 Unknown History dilTIAZem HCL [Diltiazem HCl] 30 mg PO Q8H 11/26/20 11/26/20 Unknown History glyBURIDE [Diabeta] 5 mg PO DAILY 11/26/20 11/26/20 Unknown History metFORMIN [Glucophage] 850 mg PO BID 11/26/20 11/26/20 Unknown History Active Medications: Generic Name Dose Route Start Last Admin Trade Name Freq PRN Reason Stop Dose Admin Acetaminophen 650 mg 11/26/20 02:29 Acetaminophen 325 Mg Tab PO Q4H PRN Pain MILD(1-3)/Fever >100.5/LOPEZ Albuterol/Ipratropium 1 ampul 11/26/20 08:00 11/27/20 07:54 Ipratropium/Albuterol Sulfate 3 Ml Ampul.Neb IH 1 ampul Q6HRT [facility] Administration Apixaban 5 mg 11/26/20 22:00 11/26/20 22:08 Apixaban 5 Mg Tab PO 5 mg Q12HR [facility] Administration Protocol Dextrose 0 ml 11/26/20 02:29 Dextrose 50% In Water (25gm) 50 Ml Syringe IV Q30MIN PRN Hypoglycemia Protocol Furosemide 40 mg 11/26/20 11:00 11/27/20 05:49 Furosemide 40 Mg/4 Ml Inj IV 40 mg 0600,1800 [facility] Administration Insulin Human Lispro 0 unit 11/26/20 07:30 11/27/20 08:31 Insulin Lispro 100 Unit/Ml SUB-Q Not Given ACHS [facility] Protocol Isosorbide Dinitrate/Hydralazine 1 each 11/26/20 15:00 11/27/20 05:49 Isosorb Dinit/Hydralazine 20-37.5mg Tab PO 1 each Q8HR [facility] Administration Metoprolol Tartrate 25 mg 11/26/20 15:00 11/26/20 22:08 Metoprolol Tartrate 25 Mg Tab PO 25 mg Q8H [facility] Administration Morphine Sulfate 2 mg 11/26/20 02:29 Morphine 2 Mg/1 Ml Inj IV Q4H PRN Pain, Moderate (4-6) Multivitamins 1 each 11/26/20 12:00 11/26/20 13:01 Multivitamins ,Therapeutic Tab PO 1 each QDAY [facility] Administration Ondansetron HCl 4 mg 11/26/20 02:29 Ondansetron 4 Mg/2 Ml Inj IV Q8H PRN Nausea And Vomiting Pantoprazole Sodium 40 mg 11/26/20 10:00 11/26/20 12:59 Pantoprazole 40 Mg Tab PO 40 mg QDAY [facility] Administration Sodium Chloride 10 ml 11/26/20 10:00 11/26/20 22:09 Sodium Chloride 0.9% 10 Ml Flush Syringe IV 10 ml BID [facility] Administration Sodium Chloride 10 ml 11/26/20 02:29 Sodium Chloride 0.9% 10 Ml Flush Syringe IV PRN PRN LINE FLUSH Tramadol HCl 50 mg 11/26/20 02:29 Tramadol 50 Mg Tab PO Q6H PRN Pain, Moderate (4-6)
[2020-11-27] MEDS ORDERED: LOSARTAN 25 MG TAB PO SCH (10:00)
[2020-11-27] MEDS ORDERED: ASPIRIN EC 325 MG TAB PO SCH (10:00)
--- NOTE | 2020-11-27 10:43 | Electrocardiograph Report ---
[facility] Test Date: 2020-11-26 Test Time: 11:57:26 Pat Name: ARYA WOODS Department: Room: A486 1 Gender: F Gin Inspector: JOSÉ : 1945 Requested By: ARISTEO RODRIGUEZ Order Number: [id number] Reading MD: Kale Matthews Measurements Intervals Creole Rate: 100 P: AK: QRS: 84 QRSD: 81 T: 75 QT: 336 QTc: 451 Interpretive Statements Atrial fibrillation Low voltage, extremity leads Compared to ECG 11/25/2020 22:52:54 T-wave abnormality no longer present Electronically Signed On 11-27-2020 10:43:17 EDT by Kale Matthews
[2020-11-27] MEDS: METOPROLOL TARTRATE 25 MG TAB PO SCH ×3 (11:29→22:15)
[2020-11-27] MEDS: PANTOPRAZOLE 40 MG TAB PO SCH (11:52)
[2020-11-27] MEDS: APIXABAN 5 MG TAB PO SCH ×2 (11:52→22:14)
[2020-11-27] MEDS: MULTIVITAMINS ,THERAPEUTIC TAB PO SCH (11:52)
--- NOTE | 2020-11-27 12:57 | Ultrasound Report ---
ULTRASOUND RENAL INDICATION / CLINICAL INFORMATION: Renal failure. COMPARISON: Limited abdominal ultrasound 11/26/2020. FINDINGS: RIGHT KIDNEY: Length = 10.0 cm. - Echogenicity: Normal. - Cortical Thickness: Normal. - Hydronephrosis: None. - Cyst / Mass: None. - Stones: None seen. LEFT KIDNEY: Length = 9.3 cm. - Echogenicity: Normal. - Cortical Thickness: Normal. - Hydronephrosis: Mild pelvocaliectasis. - Cyst / Mass: Tiny simple appearing cyst measuring 0.5 x 0.5 x 0.4 cm. - Stones: None seen. URINARY BLADDER: No significant abnormality. FREE FLUID: There is a small amount of ascites visualized in the right upper quadrant. ADDITIONAL FINDINGS: Bilateral pleural effusions are noted. IMPRESSION: 1. Mild left pelvocaliectasis. Tiny left renal cyst. 2. Bilateral pleural effusions and a small amount of right upper quadrant ascites. Scribed by: Debora Handley RDMS, Michelle Scribed: 11/27/2020 11:50 AM I have reviewed the images, agree with this report, and edited this report as needed. Signer Name: Jules Thompson MD Signed: 11/27/2020 12:53 PM Workstation Name: [id number]
--- NOTE | 2020-11-27 14:24 | Progress Note ---
Assessment and Plan - Patient Problems (1) Chronic atrial fibrillation Current Visit: Yes Status: Acute Plan to address problem: We will continue rate control strategy of chronic atrial fibrillation and oral anticoagulation with Eliquis. We discontinued amiodarone on presentation for elevated liver enzymes, but liver enzymes remain elevated and have increased above 1000. Gastroenterology evaluation in progress. (2) Dilated cardiomyopathy Current Visit: Yes Status: Acute Plan to address problem: Optimal medical therapy for longstanding dilated cardiomyopathy and chronic sy stolic left ventricular failure. Patient will be strongly recommended for outpatient cardiac follow-up for further management of chronic left ventricular systolic failure including device therapies as indicated. Subjective Date of service: 11/27/20 Principal diagnosis: renal failure Interval history: Patient looks and feels better, no cardiac complaints. Objective Vital Signs Temp Pulse Pulse Pulse Resp Resp BP 11/27/20 10:00 18 11/27/20 08:24 110 H 18 11/27/20 08:20 97.9 F 110 H 18 98/57 11/27/20 07:58 11/27/20 05:49 110 H 102/59 11/27/20 03:15 97.4 F L 107 H 16 102/59 11/27/20 03:09 108 H 11/26/20 22:08 115 H 107/61 11/26/20 22:05 102 H 11/26/20 22:04 98.3 F 108 H 20 107/61 11/26/20 22:00 20 11/26/20 19:39 98.3 F 46 L 18 101/43 11/26/20 16:59 102 H 102 H Pulse Ox 11/27/20 10:00 11/27/20 08:24 11/27/20 08:20 96 11/27/20 07:58 97 11/27/20 05:49 11/27/20 03:15 98 11/27/20 03:09 11/26/20 22:08 11/26/20 22:05 96 11/26/20 22:04 97 11/26/20 22:00 11/26/20 19:39 100 11/26/20 16:59 - Physical Examination General: No Apparent Distress HEENT: Positive: PERRL Neck: Positive: neck supple, trachea midline Cardiac: Positive: irregularly irregular Lungs: Positive: clear to auscultation Neuro: Positive: Grossly Intact Abdomen: Positive: Soft Skin: Positive: Clear Extremities: Absent: edema - Labs and Meds Cardiac Enzymes 11/27/20 Range/Units 05:35 AST 1070 H (5-40) units/L Coagulation 11/26/20 Range/Units 14:42 PT 26.1 H (12.2-14.9) Sec. INR 2.36 H (0.87-1.13) APTT 30.9 (24.2-36.6) Sec. Lipids 11/26/20 Range/Units 04:35 Triglycerides 75 (2-149) mg/dL Cholesterol 155 (50-199) mg/dL HDL Cholesterol 33 L (40-59) mg/dL Cholesterol/HDL Ratio 4.69 % CBC 11/26/20 11/27/20 Range/Units 14:42 05:35 WBC 7.5 6.0 (4.5-11.0) K/mm3 RBC 2.94 L 2.85 L (3.65-5.03) M/mm3 Hgb 8.8 L 8.6 L (10.1-14.3) gm/dl Hct 27.6 L 26.7 L (30.3-42.9) % Plt Count 384 339 (140-440) K/mm3 Lymph # (Auto) 1.0 L (1.2-5.4) K/mm3 [place] # (Auto) 0.5 (0.0-0.8) K/mm3 Eos # (Auto) 0.1 (0.0-0.4) K/mm3 Baso # (Auto) 0.1 (0.0-0.1) K/mm3 Comprehensive Metabolic Panel 11/26/20 11/26/20 11/26/20 Range/Units 04:35 10:49 14:42 Sodium 131 L 135 L (137-145) mmol/L Potassium 5.8 H 5.1 H (3.6-5.0) mmol/L Chloride 93.9 L 99.7 (98-107) mmol/L Carbon Dioxide 14 L 16 L (22-30) mmol/L BUN 42 H 45 H (7-17) mg/dL Creatinine 1.9 H 2.1 H 2.1 H (0.6-1.2) mg/dL Glucose 213 H 95 (65-100) mg/dL Calcium 8.7 8.6 (8.4-10.2) mg/dL AST (5-40) units/L ALT (7-56) units/L Alkaline Phosphatase (35-129) units/L Total Protein (6.3-8.2) g/dL Albumin (3.9-5) g/dL 11/27/20 11/27/20 Range/Units 05:35 05:35 Sodium 138 136 L (137-145) mmol/L Potassium 4.3 4.1 (3.6-5.0) mmol/L Chloride 103.0 99.8 (98-107) mmol/L Carbon Dioxide 22 23 (22-30) mmol/L BUN 45 H 44 H (7-17) mg/dL Creatinine 1.9 H 2.0 H (0.6-1.2) mg/dL Glucose 179 H 169 H (65-100) mg/dL Calcium 8.6 9.0 (8.4-10.2) mg/dL AST 1070 H (5-40) units/L ALT 1094 H (7-56) units/L Alkaline Phosphatase 138 H (35-129) units/L Total Protein 5.7 L (6.3-8.2) g/dL Albumin 3.3 L (3.9-5) g/dL
[2020-11-27 16:36] LABS: Calcium 8.6 mg/dL (8.4-10.2)
--- NOTE | 2020-11-27 16:55 | Progress Note ---
Assessment and Plan This is 75-year-old Tongan-speaking female with past medical history of hypertension, diabetes, A. fib, presents to the ED with chest pain since 9 PM while at rest. Patient also reports associated shortness of breath and signific ant swelling to bilateral feet and lower legs. In the ER work-up shows THERESE, hyperkalemia, normal troponin and elevated BNP, --Acute chest pain, cardiology following, medical management for now --Acute exacerbation of systolic CHF, continue diuresis, 2D echo showed EF 20 to 25% --Atrial fibrillation, rate controlled, continue Eliquis --Elevated LFT, likely due to right-sided heart failure and amiodarone which is now discontinued --THERESE on CKD, likely cardiorenal syndrome versus vasomotor nephropathy, monitor renal function, nephrology following --Hyperkalemia due to declining renal function, s/p hyperkalemia protocol, resolved --Hypokalemia, monitor BMP --Diabetes mellitus type 2, consistent carb diet, sliding scale of insulin --Hypertension, monitor BP and adjust medications as needed --Anemia of chronic disease, monitor H&H --DVT, patient on Eliquis Daily clinical course: 11/26/20: In the ER work-up shows THERESE, hyperkalemia, normal troponin and elevated BNP Nephrology consulted, patient placed on hyperkalemia protocol Cardiology consulted, 2D echo ordered Discussed plan of care with 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 Continue to monitor LFT and BMP. 2D echo showed EF 20 to 25%. GI following for elevated liver function. Discontinued amiodarone for elevated LFT, continue Eliquis for chronic atrial fibrillation. Continue diuretics, monitor ins and outs, monitor daily weights and follow renal function closely. Subjective Date of service: 11/27/20 Principal diagnosis: renal failure Interval history: Patient seen and examined. Medical records and medication list reviewed. No acute event overnight noted by the RN. Patient denies any chest pain or difficulty breathing. Patient is tolerating diet. Discussed plan of care at bedside with patient with aluminum shingle roofer via phone. Also discussed with patient's son at bedside Objective - Exam Narrative Exam: GENERAL: well-developed and well-nourished elderly female lying on bed appeared to be in no discomfort. HEENT: Normocephalic. Atraumatic. No conjunctival congestion or icterus. Patient has moist mucous membranes. NECK: Supple. Trachea midline. CHEST/LUNGS: Clear to auscultated bilaterally, breathing nonlabored. No wheezes crackles or rhonchi. HEART/CARDIOVASCULAR: Regular in rate and rhythm. S1 and S2 positive. ABDOMEN: Abdomen is soft, nontender. Patient has normal bowel sounds. SKIN: There is no rash. Warm and dry. NEURO: No focal motor deficit. Follows command. MUSCULOSKELETAL: No joint effusion or tenderness. EXTRIMITY: No edema, no cyanosis or clubbing. PSYCH: Cooperative. - Constitutional Vitals: Vital Signs - 12hr 11/27/20 11/27/20 11/27/20 05:49 07:58 08:20 Temperature 97.9 F Pulse Rate 110 H 110 H Pulse Rate [ Anterior Bilateral Throughout] Respiratory 18 Rate Respiratory Rate [Anterior Bilateral Throughout] Blood Pressure 102/59 98/57 Blood Pressure [Right] O2 Sat by Pulse 97 96 Oximetry 11/27/20 11/27/20 11/27/20 08:24 10:00 11:24 Temperature 98.1 F Pulse Rate 114 H Pulse Rate [ 110 H Anterior Bilateral Throughout] Respiratory 18 18 Rate Respiratory 18 Rate [Anterior Bilateral Throughout] Blood Pressure 119/64 Blood Pressure [Right] O2 Sat by Pulse 98 Oximetry 11/27/20 11/27/20 11/27/20 13:44 15:19 15:33 Temperature Pulse Rate 112 H 113 H Pulse Rate [ 116 H Anterior Bilateral Throughout] Respiratory Rate Respiratory 18 Rate [Anterior Bilateral Throughout] Blood Pressure 105/78 Blood Pressure 122/73 [Right] O2 Sat by Pulse Oximetry 11/27/20 16:18 Temperature 97.9 F Pulse Rate 72 Pulse Rate [ Anterior Bilateral Throughout] Respiratory 16 Rate Respiratory Rate [Anterior Bilateral Throughout] Blood Pressure 103/55 Blood Pressure [Right] O2 Sat by Pulse 96 Oximetry - Labs CBC & Chem 7: 11/27/20 05:35 11/27/20 15:13 Labs: Abnormal lab results 11/26/20 11/26/20 11/26/20 Range/Units 04:35 10:49 20:47 RBC (3.65-5.03) M/mm3 Hgb (10.1-14.3) gm/dl Hct (30.3-42.9) % RDW (13.2-15.2) % [place] % (Auto) (0.0-7.3) % Lymph # (Auto) (1.2-5.4) K/mm3 Seg Neutrophils % (40.0-70.0) % Sodium 131 L 135 L (137-145) mmol/L Potassium 5.8 H 5.1 H (3.6-5.0) mmol/L Chloride 93.9 L (98-107) mmol/L Carbon Dioxide 14 L 16 L (22-30) mmol/L BUN 42 H 45 H (7-17) mg/dL Creatinine 1.9 H 2.1 H (0.6-1.2) mg/dL Glucose 213 H (65-100) mg/dL POC Glucose 188 H (70-105) mg/dL Phosphorus (2.5-4.5) mg/dL Iron (37-170) ug/dL AST (5-40) units/L ALT (7-56) units/L Alkaline Phosphatase (35-129) units/L Total Protein (6.3-8.2) g/dL Albumin (3.9-5) g/dL HDL Cholesterol 33 L (40-59) mg/dL 11/27/20 11/27/20 11/27/20 Range/Units 05:35 05:35 05:35 RBC 2.85 L (3.65-5.03) M/mm3 Hgb 8.6 L (10.1-14.3) gm/dl Hct 26.7 L (30.3-42.9) % RDW 16.9 H (13.2-15.2) % [place] % (Auto) 8.7 H (0.0-7.3) % Lymph # (Auto) 1.0 L (1.2-5.4) K/mm3 Seg Neutrophils % 73.0 H (40.0-70.0) % Sodium 136 L (137-145) mmol/L Potassium (3.6-5.0) mmol/L Chloride (98-107) mmol/L Carbon Dioxide (22-30) mmol/L BUN 45 H 44 H (7-17) mg/dL Creatinine 1.9 H 2.0 H (0.6-1.2) mg/dL Glucose 179 H 169 H (65-100) mg/dL POC Glucose (70-105) mg/dL Phosphorus 5.00 H (2.5-4.5) mg/dL Iron 18 L (37-170) ug/dL AST 1070 H (5-40) units/L ALT 1094 H (7-56) units/L Alkaline Phosphatase 138 H (35-129) units/L Total Protein 5.7 L (6.3-8.2) g/dL Albumin 3.3 L (3.9-5) g/dL HDL Cholesterol (40-59) mg/dL 11/27/20 11/27/20 Range/Units 15:13 16:16 RBC (3.65-5.03) M/mm3 Hgb (10.1-14.3) gm/dl Hct (30.3-42.9) % RDW (13.2-15.2) % [place] % (Auto) (0.0-7.3) % Lymph # (Auto) (1.2-5.4) K/mm3 Seg Neutrophils % (40.0-70.0) % Sodium 136 L (137-145) mmol/L Potassium 3.5 L (3.6-5.0) mmol/L Chloride (98-107) mmol/L Carbon Dioxide (22-30) mmol/L BUN 39 H (7-17) mg/dL Creatinine 2.0 H (0.6-1.2) mg/dL Glucose 218 H (65-100) mg/dL POC Glucose 238 H (70-105) mg/dL Phosphorus (2.5-4.5) mg/dL Iron (37-170) ug/dL AST (5-40) units/L ALT (7-56) units/L Alkaline Phosphatase (35-129) units/L Total Protein (6.3-8.2) g/dL Albumin (3.9-5) g/dL HDL Cholesterol (40-59) mg/dL HEART Score - HEART Score EKG: Normal Age: > 65 Risk factors: > 3 risk factors or hx of atherosclerotic disease Troponin: Troponin T 0.011 ng/mL (0.00-0.029) 11/26/20 10:49 Troponin: < normal limit
--- NOTE | 2020-11-27 17:36 | Gastroenterology Progress Note ---
Assessment and Plan - Patient Problems (1) Iron deficiency anemia due to chronic blood loss Current Visit: Yes Status: Acute Plan to address problem: - No gross bleeding, and severe cardiomyopathy would raise concerns for endoscopic evaluation. - She does have CKD and this may impact the hematocrit as well. - Will start MVI and observe. (2) Elevated liver enzymes Current Visit: No Status: Inactive Plan to address problem: - Consideration of endoscopy based on cardiac function as well as clinical course. - Hepatitis serologies negative; agree with stopping amiodarone per Cardiology. - Also, the patient has severe heart failure, including R-sided disease. This may also impact the LFTs. - Will recheck tomorrow (since Amio stopped) and plan further course. Subjective Date of service: 11/27/20 Principal diagnosis: Anemia, Abnormal LFTs Interval history: The patient has been stable today without N/V/abdominal pain. She has no blood in the stools, and is tolerating a regular diet. Objective - Constitutional Vitals: Temp Pulse Resp BP Pulse Ox 97.9 F 72 16 103/55 96 11/27/20 16:18 11/27/20 16:18 11/27/20 16:18 11/27/20 16:18 11/27/20 16:18 General appearance: no acute distress - Respiratory Respiratory effort: normal Respiratory: bilateral: diminished - Cardiovascular Rhythm: irregularly irregular Heart Sounds: Present: S1 & S2, systolic murmur - Gastrointestinal General gastrointestinal: Present: soft, non-tender, non-distended - Labs CBC & Chem 7: 11/27/20 05:35 11/27/20 15:13 Labs: Laboratory Results - last 24 hr 11/26/20 11/26/20 11/26/20 04:35 10:49 20:47 WBC RBC Hgb Hct MCV MCH MCHC RDW Plt Count Lymph % (Auto) [place] % (Auto) Eos % (Auto) Baso % (Auto) Lymph # (Auto) [place] # (Auto) Eos # (Auto) Baso # (Auto) Seg Neutrophils % Seg Neutrophils # Sodium 131 L 135 L Potassium 5.8 H 5.1 H Chloride 93.9 L 99.7 Carbon Dioxide 14 L 16 L Anion Gap 29 24 BUN 42 H 45 H Creatinine 1.9 H 2.1 H Estimated GFR 26 23 BUN/Creatinine Ratio 22 21 Glucose 213 H 95 POC Glucose 188 H Calcium 8.7 8.6 Phosphorus Iron TIBC Total Bilirubin AST ALT Alkaline Phosphatase Total Protein Albumin Albumin/Globulin Ratio Triglycerides 75 Cholesterol 155 LDL Cholesterol Direct 117 HDL Cholesterol 33 L Cholesterol/HDL Ratio 4.69 Hep Bs Antigen Hepatitis C Antibody 11/27/20 11/27/20 11/27/20 04:50 05:35 05:35 WBC 6.0 RBC 2.85 L Hgb 8.6 L Hct 26.7 L MCV 94 MCH 30 MCHC 32 RDW 16.9 H Plt Count 339 Lymph % (Auto) 16.3 [place] % (Auto) 8.7 H Eos % (Auto) 1.1 Baso % (Auto) 0.9 Lymph # (Auto) 1.0 L [place] # (Auto) 0.5 Eos # (Auto) 0.1 Baso # (Auto) 0.1 Seg Neutrophils % 73.0 H Seg Neutrophils # 4.3 Sodium 138 Potassium 4.3 Chloride 103.0 Carbon Dioxide 22 Anion Gap 17 BUN 45 H Creatinine 1.9 H Estimated GFR 26 BUN/Creatinine Ratio 24 Glucose 179 H POC Glucose Calcium 8.6 Phosphorus 5.00 H Iron TIBC Total Bilirubin AST ALT Alkaline Phosphatase Total Protein Albumin Albumin/Globulin Ratio Triglycerides Cholesterol LDL Cholesterol Direct HDL Cholesterol Cholesterol/HDL Ratio Hep Bs Antigen Hepatitis C Antibody Non-reactive 11/27/20 11/27/20 11/27/20 05:35 05:35 11:22 WBC RBC Hgb Hct MCV MCH MCHC RDW Plt Count Lymph % (Auto) [place] % (Auto) Eos % (Auto) Baso % (Auto) Lymph # (Auto) [place] # (Auto) Eos # (Auto) Baso # (Auto) Seg Neutrophils % Seg Neutrophils # Sodium 136 L Potassium 4.1 Chloride 99.8 Carbon Dioxide 23 Anion Gap 17 BUN 44 H Creatinine 2.0 H Estimated GFR 24 BUN/Creatinine Ratio 22 Glucose 169 H POC Glucose 97 Calcium 9.0 Phosphorus Iron 18 L TIBC 348 Total Bilirubin 0.60 AST 1070 H ALT 1094 H Alkaline Phosphatase 138 H Total Protein 5.7 L Albumin 3.3 L Albumin/Globulin Ratio 1.4 Triglycerides Cholesterol LDL Cholesterol Direct HDL Cholesterol Cholesterol/HDL Ratio Hep Bs Antigen Non-reactive Hepatitis C Antibody 11/27/20 11/27/20 15:13 16:16 WBC RBC Hgb Hct MCV MCH MCHC RDW Plt Count Lymph % (Auto) [place] % (Auto) Eos % (Auto) Baso % (Auto) Lymph # (Auto) [place] # (Auto) Eos # (Auto) Baso # (Auto) Seg Neutrophils % Seg Neutrophils # Sodium 136 L Potassium 3.5 L Chloride 98.5 Carbon Dioxide 24 Anion Gap 17 BUN 39 H Creatinine 2.0 H Estimated GFR 24 BUN/Creatinine Ratio 20 Glucose 218 H POC Glucose 238 H Calcium 8.6 Phosphorus Iron TIBC Total Bilirubin AST ALT Alkaline Phosphatase Total Protein Albumin Albumin/Globulin Ratio Triglycerides Cholesterol LDL Cholesterol Direct HDL Cholesterol Cholesterol/HDL Ratio Hep Bs Antigen Hepatitis C Antibody
[2020-11-28] MEDS: IPRATROPIUM/ALBUTEROL SULFATE 3 ML AMPUL.NEB IH SCH ×4 (02:20→20:35)
[2020-11-28] MEDS: ISOSORB DINIT/HYDRALAZINE 20-37.5MG TAB PO SCH ×3 (06:00→21:22)
[2020-11-28] MEDS: METOPROLOL TARTRATE 25 MG TAB PO SCH ×3 (06:09→22:04)
[2020-11-28] MEDS: FUROSEMIDE 40 MG/4 ML INJ IV SCH ×2 (06:10→19:22)
[2020-11-28 06:30] LABS: Hemoglobin 8.9 gm/dl (10.1-14.3); Mean Corpuscular HGB Conc 33 % (30-34); Mean Corpuscular Volume 92 fl (79-97); Platelet Count 395 K/mm3 (140-440); Red Blood Count 2.93 M/mm3 (3.65-5.03); Red Cell Distribution Width 16.8 % (13.2-15.2)
[2020-11-28 06:55] LABS: Calcium 8.7 mg/dL (8.4-10.2)
[2020-11-28 07:02] LABS: Albumin 3.5 g/dL (3.9-5); Bilirubin,Direct 0.3 mg/dL (0-0.2)
[2020-11-28] MEDS: INSULIN LISPRO 100 UNIT/ML SUB-Q SCH ×4 (08:44→22:02)
--- NOTE | 2020-11-28 09:50 | Progress Note ---
Assessment and Plan Assessment and plan: This is 75-year-old Sinhala-speaking female with past medical history of hypertension, diabetes, A. fib, presents to the ED with chest pain since 9 PM while at rest. Patient also reports associated shortness of breath and significant swelling to bilateral feet and lower legs. In the ER work-up shows THERESE, hyperkalemia, normal troponin and elevated BNP, --Acute chest pain, cardiology following, medical management for now --Acute exacerbation of systolic CHF, continue diuresis, 2D echo showed EF 20 to 25% --Atrial fibrillation, rate controlled, continue Eliquis --Elevated LFT, likely due to right-sided heart failure and amiodarone which is now discontinued --THERESE on CKD, likely cardiorenal syndrome versus vasomotor nephropathy, monitor renal function, nephrology following --Hyperkalemia due to declining renal function, s/p hyperkalemia protocol, resolved --Hypokalemia, monitor BMP --Diabetes mellitus type 2, consistent carb diet, sliding scale of insulin --Hypertension, monitor BP and adjust medications as needed --Anemia of chronic disease, monitor H&H --DVT, patient on Eliquis Daily clinical course: 11/26/20: In the ER work-up shows THERESE, hyperkalemia, normal troponin and elevated BNP Nephrology consulted, patient placed on hyperkalemia protocol Cardiology consulted, 2D echo ordered Discussed plan of care with patient with it consulting manager by telephone Patient complains of abdominal pain and lower extremity swelling Vitals appears to be stable, potassium level improved CTABL, no wheezes Wait for echocardiogram result, continue IV Lasix for now 11/27/20: Denies any chest pain or abdominal pain. Continue to monitor LFT and BMP. 2D echo showed EF 20 to 25%. GI following for elevated liver function. Discontinued amiodarone for elevated LFT, continue Eliquis for chronic atrial fibrillation. Continue diuretics, monitor ins and outs, monitor daily weights and follow renal function closely. 11/28/20: Hospitalist Physical - Constitutional Vitals: Temp Pulse Resp BP Pulse Ox 98.0 F 68 16 111/64 97 11/28/20 07:58 11/28/20 08:17 11/28/20 08:17 11/28/20 07:58 11/28/20 08:21 General appearance: Present: no acute distress HEART Score - HEART Score EKG: Normal Age: > 65 Risk factors: > 3 risk factors or hx of atherosclerotic disease Troponin: Troponin T 0.011 ng/mL (0.00-0.029) 11/26/20 10:49 Troponin: < normal limit Results - Labs CBC & Chem 7: 11/28/20 05:57 11/28/20 05:57 Labs: Laboratory Last Values WBC 5.2 K/mm3 (4.5-11.0) 11/28/20 05:57 RBC 2.93 M/mm3 (3.65-5.03) L 11/28/20 05:57 Hgb 8.9 gm/dl (10.1-14.3) L 11/28/20 05:57 Hct 27.0 % (30.3-42.9) L 11/28/20 05:57 MCV 92 fl (79-97) 11/28/20 05:57 MCH 30 pg (28-32) 11/28/20 05:57 MCHC 33 % (30-34) 11/28/20 05:57 RDW 16.8 % (13.2-15.2) H 11/28/20 05:57 Plt Count 395 K/mm3 (140-440) 11/28/20 05:57 Lymph % (Auto) 16.3 % (13.4-35.0) 11/27/20 05:35 [place] % (Auto) 8.7 % (0.0-7.3) H 11/27/20 05:35 Eos % (Auto) 1.1 % (0.0-4.3) 11/27/20 05:35 Baso % (Auto) 0.9 % (0.0-1.8) 11/27/20 05:35 Lymph # (Auto) 1.0 K/mm3 (1.2-5.4) L 11/27/20 05:35 [place] # (Auto) 0.5 K/mm3 (0.0-0.8) 11/27/20 05:35 Eos # (Auto) 0.1 K/mm3 (0.0-0.4) 11/27/20 05:35 Baso # (Auto) 0.1 K/mm3 (0.0-0.1) 11/27/20 05:35 Seg Neutrophils % 73.0 % (40.0-70.0) H 11/27/20 05:35 Seg Neutrophils # 4.3 K/mm3 (1.8-7.7) 11/27/20 05:35 PT 26.1 Sec. (12.2-14.9) H 11/26/20 14:42 INR 2.36 (0.87-1.13) H 11/26/20 14:42 APTT 30.9 Sec. (24.2-36.6) 11/26/20 14:42 D-Dimer 5721.78 ng/mlDDU (0-234) H 11/26/20 01:09 Sodium 139 mmol/L (137-145) 11/28/20 05:57 Potassium 3.7 mmol/L (3.6-5.0) 11/28/20 05:57 Chloride 98.2 mmol/L (98-107) 11/28/20 05:57 Carbon Dioxide 30 mmol/L (22-30) 11/28/20 05:57 Anion Gap 15 mmol/L 11/28/20 05:57 BUN 40 mg/dL (7-17) H 11/28/20 05:57 Creatinine 1.8 mg/dL (0.6-1.2) H 11/28/20 05:57 Estimated GFR 27 ml/min 11/28/20 05:57 BUN/Creatinine Ratio 22 % 11/28/20 05:57 Glucose 92 mg/dL (65-100) 11/28/20 05:57 POC Glucose 100 mg/dL (70-105) 11/28/20 07:54 Calcium 8.7 mg/dL (8.4-10.2) 11/28/20 05:57 Phosphorus 5.00 mg/dL (2.5-4.5) H 11/27/20 05:35 Iron 18 ug/dL (37-170) L 11/27/20 05:35 TIBC 348 mcg/dL (250-450) 11/27/20 05:35 Total Bilirubin 0.90 mg/dL (0.1-1.2) 11/28/20 05:57 Direct Bilirubin 0.3 mg/dL (0-0.2) H 11/28/20 05:57 Indirect Bilirubin 0.6 mg/dL 11/28/20 05:57 AST 473 units/L (5-40) H 11/28/20 05:57 ALT 783 units/L (7-56) H 11/28/20 05:57 Alkaline Phosphatase 109 units/L (35-129) 11/28/20 05:57 Troponin T 0.011 ng/mL (0.00-0.029) 11/26/20 10:49 NT-Pro-B Natriuret Pep 4891 pg/mL (0-900) H 11/26/20 01:09 Total Protein 5.9 g/dL (6.3-8.2) L 11/28/20 05:57 Albumin 3.5 g/dL (3.9-5) L 11/28/20 05:57 Albumin/Globulin Ratio 1.5 % 11/28/20 05:57 Triglycerides 75 mg/dL (2-149) 11/26/20 04:35 Cholesterol 155 mg/dL (50-199) 11/26/20 04:35 LDL Cholesterol Direct 117 mg/dL (50-130) 11/26/20 04:35 HDL Cholesterol 33 mg/dL (40-59) L 11/26/20 04:35 Cholesterol/HDL Ratio 4.69 % 11/26/20 04:35 Hep Bs Antigen Non-reactive (Negative) 11/27/20 05:35 Hepatitis C Antibody Non-reactive (NonReactive) 11/27/20 04:50 [place]/IV: Voiding Method Toilet Active Medications - Current Medications Current Medications: Generic Name Dose Route Start Last Admin Trade Name Freq PRN Reason Stop Dose Admin Acetaminophen 650 mg 11/26/20 02:29 Acetaminophen 325 Mg Tab PO Q4H PRN Pain MILD(1-3)/Fever >100.5/LOPEZ Albuterol 2.5 mg 11/28/20 12:00 Albuterol 2.5 Mg/3 Ml Nebu IH Q4HRT PRN Shortness Of Breath Albuterol/Ipratropium 1 ampul 11/28/20 20:00 Ipratropium/Albuterol Sulfate 3 Ml Ampul.Neb IH Q12HRT CARLEEN Apixaban 5 mg 11/26/20 22:00 11/27/20 22:14 Apixaban 5 Mg Tab PO 5 mg Q12HR CARLEEN Administration Protocol Dextrose 0 ml 11/26/20 02:29 Dextrose 50% In Water (25gm) 50 Ml Syringe IV Q30MIN PRN Hypoglycemia Protocol Furosemide 40 mg 11/26/20 11:00 11/28/20 06:10 Furosemide 40 Mg/4 Ml Inj IV 40 mg 0600,1800 CARLEEN Administration Insulin Human Lispro 0 unit 11/26/20 07:30 11/28/20 08:44 Insulin Lispro 100 Unit/Ml SUB-Q Not Given ACHS [facility] Protocol Isosorbide Dinitrate/Hydralazine 1 each 11/26/20 15:00 11/27/20 22:13 Isosorb Dinit/Hydralazine 20-37.5mg Tab PO 1 each Q8HR CARLEEN Administration Metoprolol Tartrate 25 mg 11/26/20 15:00 11/28/20 06:09 Metoprolol Tartrate 25 Mg Tab PO 25 mg Q8H CARLEEN Administration Morphine Sulfate 2 mg 11/26/20 02:29 Morphine 2 Mg/1 Ml Inj IV Q4H PRN Pain, Moderate (4-6) Multivitamins 1 each 11/26/20 12:00 11/27/20 11:52 Multivitamins ,Therapeutic Tab PO 1 each QDAY CARLEEN Administration Multivitamins/Iron 1 each 11/28/20 10:00 Fe Fumarate/Fa/Mv, Min Comb#15 Cap (Hemocyte Plus) PO QDAY CARLEEN Ondansetron HCl 4 mg 11/26/20 02:29 Ondansetron 4 Mg/2 Ml Inj IV Q8H PRN Nausea And Vomiting Pantoprazole Sodium 40 mg 11/26/20 10:00 11/27/20 11:52 Pantoprazole 40 Mg Tab PO 40 mg QDAY CARLEEN Administration Sodium Chloride 10 ml 11/26/20 10:00 11/27/20 22:14 Sodium Chloride 0.9% 10 Ml Flush Syringe IV 10 ml BID CARLEEN Administration Sodium Chloride 10 ml 11/26/20 02:29 Sodium Chloride 0.9% 10 Ml Flush Syringe IV PRN PRN LINE FLUSH Tramadol HCl 50 mg 11/26/20 02:29 Tramadol 50 Mg Tab PO Q6H PRN Pain, Moderate (4-6) Nutrition/Malnutrition Assess - Dietary Evaluation Nutrition/Malnutrition Findings: Nutrition Notes Start: 11/26/20 1 4:18 Freq: Status: Active Protocol: Document 11/26/20 14:18 MK (Rec: 11/26/20 14:36 [email or web address]) Nutrition Notes Need for Assessment generated from: MD Order,weight analyst,MST, Education Initial or Follow up Assessment Current Diagnosis Acute Kidney Injury,Diabetes, Hypertension Other Pertinent Diagnosis anemia, a fib Current Diet cardiac, consistent Labs/Tests Na 135 K 5.1 BUN 45 Cr 2.1 Pertinent Medications MVI Lasix Height 5 ft Weight 67.585 kg Usual Body Weight 70 kg [place] Body Weight (kg) 45.45 BMI 29.0 Intake Prior to Admission Poor Weight change and time frame 3% wt loss in 3-4 weeks Weight Status Overweight Subjective/Other Information MD consult for education and RN screen for MST. Pt reports decreased appetite for unknown reason. Pt denied diet education. Burn Absent Trauma Absent GI Symptoms Nausea Current % PO Negligible Minimum of two criteria No Energy Intake (non-severe) <75% Estimated Energy Requirement >7 days #1 Nutrition Diagnosis Inadequate oral intake Etiology N/V As Evidenced by Signs and Symptoms pt eating 0% of meals Is patient on ventilator? No Is Patient Ambulatory and/or Out of Bed Yes REE-([facility]-ambulatory/OOB) [ 1407.055 [id number]] Calculation Used for Recommendations [facility] or Additional Notes Protein: (1-1.2g/kg) 68-81 Fluid: 1 ml/kcal Nutrition Intervention Change Diet Order: Continue Add Supplement/Snack (indicate name/kcal Glucerna TID /protein ) Provides kCal: 660 Provides Protein (gm) 30 Goal #1 Meet at least 75% of energy and protein needs via PO and ONS Anticipated Discharge Needs: Cardiac, consistent Follow-Up By: 11/28/20 Additional Comments FU for intakes and ONS tolerance
--- NOTE | 2020-11-28 10:25 | Electrocardiograph Report ---
[facility] Test Date: 2020-11-28 Test Time: 07:54:54 Pat Name: ARYA WOODS Department: Room: A486 1 Gender: F Practice Consultant: JOSÉ : 1945 Requested By: ARISTEO RODRIGUEZ Order Number: [id number] Reading MD: Kale Matthews Measurements Intervals Victor Rate: 104 P: WA: QRS: 77 QRSD: 73 T: 73 QT: 384 QTc: 505 Interpretive Statements Atrial fibrillation Prolonged QT interval Compared to ECG 11/26/2020 11:57:26 Prolonged QT interval now present Electronically Signed On 11-28-2020 10:25:40 EDT by Kale Matthews
[2020-11-28] MEDS: APIXABAN 5 MG TAB PO SCH ×2 (11:05→21:21)
[2020-11-28] MEDS: PANTOPRAZOLE 40 MG TAB PO SCH (11:05)
[2020-11-28] MEDS: MULTIVITAMINS ,THERAPEUTIC TAB PO SCH (11:05)
[2020-11-28] MEDS: FE FUMARATE/FA/MV, MIN COMB#15 CAP (HEMOCYTE PLUS) PO SCH (11:08)
--- NOTE | 2020-11-28 11:53 | Progress Note ---
Assessment and Plan Chest Pain Acute Renal Failure on CKD Hypertension Diabetes Mellitus Anemia Hyperkalemia, Improved Plan: Cr is stable, no UOP recorded. unknow baseline Cr Patient states she was told in [place] that she had abnormal renal labs but never followed up with a kidney doctor cont diuretics renal ultrasound 0ve for obstruction Obtain urine lytes, protein and eosinophils-pending Avoid nephrotoxic agents Monitor I/O's daily Obtain daily weights Monitor renal function closely Subjective Date of service: 11/28/20 Principal diagnosis: renal failure Interval history: no overnight events reported Objective - Vital Signs Vital signs: Vital Signs - 12hr 11/28/20 11/28/20 11/28/20 00:00 00:30 04:00 Temperature 98.4 F 97.4 F L Pulse Rate 96 H 111 H 97 H Pulse Rate [ Posterior Bilateral Lower Lobe] Respiratory 20 16 Rate Respiratory Rate [Posterior Bilateral Lower Lobe] Blood Pressure Blood Pressure 91/51 101/58 [Right] O2 Sat by Pulse Oximetry 11/28/20 11/28/20 11/28/20 04:15 06:09 07:58 Temperature 98.0 F Pulse Rate 107 H 112 H 107 H Pulse Rate [ Posterior Bilateral Lower Lobe] Respiratory 16 Rate Respiratory Rate [Posterior Bilateral Lower Lobe] Blood Pressure 111/64 Blood Pressure [Right] O2 Sat by Pulse 97 Oximetry 11/28/20 11/28/20 11/28/20 08:16 08:17 08:21 Temperature Pulse Rate Pulse Rate [ 68 Posterior Bilateral Lower Lobe] Respiratory Rate Respiratory 16 Rate [Posterior Bilateral Lower Lobe] Blood Pressure Blood Pressure [Right] O2 Sat by Pulse 97 97 Oximetry - Lab 11/28/20 05:57 11/28/20 05:57 Most recent lab results Calcium 8.7 mg/dL (8.4-10.2) 11/28/20 05:57 Phosphorus 5.00 mg/dL (2.5-4.5) H 11/27/20 05:35 Medications & Allergies - Medications Allergies/Adverse Reactions: Allergies No Known Allergies Allergy (Unverified 11/25/20 22:43) Home Medications: Home Medications Medication Instructions Recorded Confirmed Last Taken Type Amiodarone [Cordarone 200 MG TAB] 100 mg PO DAILY 11/26/20 11/26/20 Unknown History Apixaban [Eliquis] 5 mg PO DAILY 11/26/20 11/26/20 Unknown History Furosemide [Lasix] 20 mg PO QDAY 11/26/20 11/26/20 Unknown History Nebivolol (Nf) [Bystolic (Nf)] 2.5 mg PO DAILY 11/26/20 11/26/20 Unknown History Telmisartan 40 mg PO DAILY 11/26/20 11/26/20 Unknown History dilTIAZem HCL [Diltiazem HCl] 30 mg PO Q8H 11/26/20 11/26/20 Unknown History glyBURIDE [Diabeta] 5 mg PO DAILY 11/26/20 11/26/20 Unknown History metFORMIN [Glucophage] 850 mg PO BID 11/26/20 11/26/20 Unknown History Active Medications: Generic Name Dose Route Start Last Admin Trade Name Freq PRN Reason Stop Dose Admin Acetaminophen 650 mg 11/26/20 02:29 Acetaminophen 325 Mg Tab PO Q4H PRN Pain MILD(1-3)/Fever >100.5/LOPEZ Albuterol 2.5 mg 11/28/20 12:00 Albuterol 2.5 Mg/3 Ml Nebu IH Q4HRT PRN Shortness Of Breath Albuterol/Ipratropium 1 ampul 11/28/20 20:00 Ipratropium/Albuterol Sulfate 3 Ml Ampul.Neb IH Q12HRT CARLEEN Apixaban 5 mg 11/26/20 22:00 11/28/20 11:05 Apixaban 5 Mg Tab PO 5 mg Q12HR CARLEEN Administration Protocol Dextrose 0 ml 11/26/20 02:29 Dextrose 50% In Water (25gm) 50 Ml Syringe IV Q30MIN PRN Hypoglycemia Protocol Furosemide 40 mg 11/26/20 11:00 11/28/20 06:10 Furosemide 40 Mg/4 Ml Inj IV 40 mg 0600,1800 CARLEEN Administration Insulin Human Lispro 0 unit 11/26/20 07:30 11/28/20 08:44 Insulin Lispro 100 Unit/Ml SUB-Q Not Given ACHS CARLEEN Protocol Isosorbide Dinitrate/Hydralazine 1 each 11/26/20 15:00 11/27/20 22:13 Isosorb Dinit/Hydralazine 20-37.5mg Tab PO 1 each Q8HR CARLEEN Administration Metoprolol Tartrate 25 mg 11/26/20 15:00 11/28/20 06:09 Metoprolol Tartrate 25 Mg Tab PO 25 mg Q8H CARLEEN Administration Morphine Sulfate 2 mg 11/26/20 02:29 Morphine 2 Mg/1 Ml Inj IV Q4H PRN Pain, Moderate (4-6) Multivitamins 1 each 11/26/20 12:00 11/28/20 11:05 Multivitamins ,Therapeutic Tab PO 1 each QDAY CARELEN Administration Multivitamins/Iron 1 each 11/28/20 10:00 11/28/20 11:08 Fe Fumarate/Fa/Mv, Min Comb#15 Cap (Hemocyte Plus) PO Not Given QDAY CARLEEN Ondansetron HCl 4 mg 11/26/20 02:29 Ondansetron 4 Mg/2 Ml Inj IV Q8H PRN Nausea And Vomiting Pantoprazole Sodium 40 mg 11/26/20 10:00 11/28/20 11:05 Pantoprazole 40 Mg Tab PO 40 mg QDAY CARLEEN Administration Sodium Chloride 10 ml 11/26/20 10:00 11/27/20 22:14 Sodium Chloride 0.9% 10 Ml Flush Syringe IV 10 ml BID CARLEEN Administration Sodium Chloride 10 ml 11/26/20 02:29 Sodium Chloride 0.9% 10 Ml Flush Syringe IV PRN PRN LINE FLUSH Tramadol HCl 50 mg 11/26/20 02:29 Tramadol 50 Mg Tab PO Q6H PRN Pain, Moderate (4-6)
[2020-11-28] MEDS ORDERED: ALBUTEROL 2.5 MG/3 ML NEBU IH PRN (12:00)
--- NOTE | 2020-11-28 13:40 | Progress Note ---
Assessment and Plan - Patient Problems (1) Chronic atrial fibrillation Current Visit: Yes Status: Acute Plan to address problem: We will continue rate control strategy of chronic atrial fibrillation and oral anticoagulation with Eliquis. We discontinued amiodarone on presentation for elevated liver enzymes. (2) Dilated cardiomyopathy Current Visit: Yes Status: Acute Plan to address problem: Optimal medical therapy for longstanding dilated cardiomyopathy and chronic systolic left ventricular failure. Patient will be strongly recommended for outpatient cardiac follow-up for further management of chronic left ventricular systolic failure including device therapies as indicated. Subjective Date of service: 11/28/20 Principal diagnosis: renal failure Interval history: Patient is comfortable, no new cardiac complaint. Objective Vital Signs Temp Pulse Pulse Pulse Resp Resp Resp 11/28/20 11:35 98.0 F 117 H 16 11/28/20 08:21 11/28/20 08:17 68 16 11/28/20 08:16 11/28/20 07:58 98.0 F 107 H 16 11/28/20 06:09 112 H 11/28/20 04:15 107 H 11/28/20 04:00 97.4 F L 97 H 16 11/28/20 00:30 111 H 11/28/20 00:00 98.4 F 96 H 20 11/27/20 22:15 108 H 11/27/20 22:13 108 H 11/27/20 21:29 18 11/27/20 20:00 98.6 F 95 H 18 11/27/20 16:18 97.9 F 72 16 11/27/20 16:00 113 H 11/27/20 15:33 113 H 11/27/20 15:19 112 H 11/27/20 13:44 116 H 18 BP BP Pulse Ox 11/28/20 11:35 101/45 94 11/28/20 08:21 97 11/28/20 08:17 11/28/20 08:16 97 11/28/20 07:58 111/64 97 11/28/20 06:09 11/28/20 04:15 11/28/20 04:00 101/58 11/28/20 00:30 11/28/20 00:00 91/51 11/27/20 22:15 11/27/20 22:13 11/27/20 21:29 11/27/20 20:00 118/64 11/27/20 16:18 103/55 96 11/27/20 16:00 11/27/20 15:33 122/73 11/27/20 15:19 105/78 11/27/20 13:44 - Physical Examination General: No Apparent Distress HEENT: Positive: PERRL Neck: Positive: neck supple, trachea midline Cardiac: Positive: irregularly irregular Lungs: Positive: Decreased Breath Sounds Neuro: Positive: Grossly Intact Abdomen: Positive: Soft Skin: Positive: Clear Extremities: Absent: edema - Labs and Meds Cardiac Enzymes 11/28/20 Range/Units 05:57 AST 473 H (5-40) units/L CBC 11/28/20 Range/Units 05:57 WBC 5.2 (4.5-11.0) K/mm3 RBC 2.93 L (3.65-5.03) M/mm3 Hgb 8.9 L (10.1-14.3) gm/dl Hct 27.0 L (30.3-42.9) % Plt Count 395 (140-440) K/mm3 Comprehensive Metabolic Panel 11/27/20 11/28/20 11/28/20 Range/Units 15:13 05:57 05:57 Sodium 136 L 139 (137-145) mmol/L Potassium 3.5 L 3.7 (3.6-5.0) mmol/L Chloride 98.5 98.2 (98-107) mmol/L Carbon Dioxide 24 30 (22-30) mmol/L BUN 39 H 40 H (7-17) mg/dL Creatinine 2.0 H 1.8 H (0.6-1.2) mg/dL Glucose 218 H 92 (65-100) mg/dL Calcium 8.6 8.7 (8.4-10.2) mg/dL Direct Bilirubin 0.3 H (0-0.2) mg/dL Indirect Bilirubin 0.6 mg/dL AST 473 H (5-40) units/L ALT 783 H (7-56) units/L Alkaline Phosphatase 109 (35-129) units/L Total Protein 5.9 L (6.3-8.2) g/dL Albumin 3.5 L (3.9-5) g/dL
--- NOTE | 2020-11-28 13:58 | Gastroenterology Progress Note ---
Assessment and Plan - Patient Problems (1) Iron deficiency anemia due to chronic blood loss Current Visit: Yes Status: Acute Plan to address problem: - No gross bleeding, and severe cardiomyopathy would raise concerns for endoscopic evaluation. - She does have CKD and this may impact the hematocrit as well. - Stable hct x 3 days despite Eliquis; no need for EGD/colon at present. (2) Elevated liver enzymes Current Visit: No Status: Inactive Plan to address problem: - Consideration of endoscopy based on cardiac function as well as clinical course. - Hepatitis serologies negative; agree with stopping amiodarone per Cardiology. - Also, the patient has severe heart failure, including R-sided disease. This may also impact the LFTs. - LFTs now improved, off amiodarone. US unremarkable. - Suspect combination of amoidarone, fatty liver, and R heart failure. - No further workup planned; will sign off; please call with questions. Subjective Date of service: 11/28/20 Principal diagnosis: abnl LFTs, anemia Interval history: The patient has no rectal bleeding, and no jaundice or abdominal pain. Resting quietly without SOB. Objective - Constitutional Vitals: Temp Pulse Resp BP Pulse Ox 98.0 F 117 H 16 101/45 94 11/28/20 11:35 11/28/20 11:35 11/28/20 11:35 11/28/20 11:35 11/28/20 11:35 General appearance: no acute distress - EENT Eyes: PERRL, EOM intact - Respiratory Respiratory effort: normal Respiratory: bilateral: CTA - Cardiovascular Rhythm: regular Heart Sounds: Present: S1 & S2, systolic murmur - Gastrointestinal General gastrointestinal: Present: soft, non-tender, non-distended - Labs CBC & Chem 7: 11/28/20 05:57 11/28/20 05:57 Labs: Laboratory Results - last 24 hr 11/27/20 11/27/20 11/27/20 15:13 16:16 21:09 WBC RBC Hgb Hct MCV MCH MCHC RDW Plt Count Sodium 136 L Potassium 3.5 L Chloride 98.5 Carbon Dioxide 24 Anion Gap 17 BUN 39 H Creatinine 2.0 H Estimated GFR 24 BUN/Creatinine Ratio 20 Glucose 218 H POC Glucose 238 H 172 H Calcium 8.6 Total Bilirubin Direct Bilirubin Indirect Bilirubin AST ALT Alkaline Phosphatase Total Protein Albumin Albumin/Globulin Ratio 11/28/20 11/28/20 11/28/20 05:57 05:57 05:57 WBC 5.2 RBC 2.93 L Hgb 8.9 L Hct 27.0 L MCV 92 MCH 30 MCHC 33 RDW 16.8 H Plt Count 395 Sodium 139 Potassium 3.7 Chloride 98.2 Carbon Dioxide 30 Anion Gap 15 BUN 40 H Creatinine 1.8 H Estimated GFR 27 BUN/Creatinine Ratio 22 Glucose 92 POC Glucose Calcium 8.7 Total Bilirubin 0.90 Direct Bilirubin 0.3 H Indirect Bilirubin 0.6 AST 473 H ALT 783 H Alkaline Phosphatase 109 Total Protein 5.9 L Albumin 3.5 L Albumin/Globulin Ratio 1.5 11/28/20 11/28/20 07:54 11:28 WBC RBC Hgb Hct MCV MCH MCHC RDW Plt Count Sodium Potassium Chloride Carbon Dioxide Anion Gap BUN Creatinine Estimated GFR BUN/Creatinine Ratio Glucose POC Glucose 100 341 H Calcium Total Bilirubin Direct Bilirubin Indirect Bilirubin AST ALT Alkaline Phosphatase Total Protein Albumin Albumin/Globulin Ratio
--- NOTE | 2020-11-28 18:59 | Progress Note ---
Assessment and Plan Assessment and plan: This is 75-year-old English-speaking female with past medical history of hypertension, diabetes, A. fib, presents to the ED with chest pain since 9 PM while at rest. Patient also reports associated shortness of breath and significant swelling to bilateral feet and lower legs. In the ER work-up shows THERESE, hyperkalemia, normal troponin and elevated BNP, --Acute chest pain, cardiology following, medical management for now --Acute exacerbation of systolic CHF, continue diuresis, 2D echo showed EF 20 to 25% --Atrial fibrillation, rate controlled, continue Eliquis --Elevated LFT, likely due to right-sided heart failure and amiodarone which is now discontinued --THERESE on CKD, likely cardiorenal syndrome versus vasomotor nephropathy, monitor renal function, nephrology following --Hyperkalemia due to declining renal function, s/p hyperkalemia protocol, resolved --Hypokalemia, monitor BMP --Diabetes mellitus type 2, consistent carb diet, sliding scale of insulin --Hypertension, monitor BP and adjust medications as needed --Anemia of chronic disease, monitor H&H --DVT, patient on Eliquis Daily clinical course: 11/26/20: In the ER work-up shows THERESE, hyperkalemia, normal troponin and elevated BNP Nephrology consulted, patient placed on hyperkalemia protocol Cardiology consulted, 2D echo ordered Discussed plan of care with patient with business planning analyst by telephone Patient complains of abdominal pain and lower extremity swelling Vitals appears to be stable, potassium level improved CTABL, no wheezes Wait for echocardiogram result, continue IV Lasix for now 11/27/20: Denies any chest pain or abdominal pain. Continue to monitor LFT and BMP. 2D echo showed EF 20 to 25%. GI following for elevated liver function. Discontinued amiodarone for elevated LFT, continue Eliquis for chronic atrial fibrillation. Continue diuretics, monitor ins and outs, monitor daily weights and follow renal function closely. 11/28/20: Will follow subspecialist recs. PLan for possible d/c today or tomorrow. - Patient Problems (1) Chronic atrial fibrillation Current Visit: Yes Status: Acute (2) Dilated cardiomyopathy Current Visit: Yes Status: Acute (3) Iron deficiency anemia due to chronic blood loss Current Visit: Yes Status: Acute (4) Abdominal pain Current Visit: No Status: Acute (5) DVT prophylaxis Current Visit: No Status: Acute (6) Diabetes Current Visit: No Status: Acute History Interval history: No acute overnight events. Discussed with family and patient plan for day and lab findings. Patient and her son were present at bedside and grandson was on phone to translate. All concerns addresed to their satisfaction. Hospitalist Physical - Physical exam Narrative exam: General: No Apparent Distress HEENT: Positive: PERRL Neck: Positive: neck supple, trachea midline Cardiac: Positive: irregularly irregular Lungs: Positive: Decreased Breath Sounds Neuro: Positive: Grossly Intact Abdomen: Positive: Soft Skin: Positive: Clear Extremities: Absent: edema - Constitutional Vitals: Temp Pulse Resp BP Pulse Ox 98.0 F 107 H 16 99/51 97 11/28/20 11:35 11/28/20 16:04 11/28/20 11:35 11/28/20 17:55 11/28/20 16:04 General appearance: Present: no acute distress HEART Score - HEART Score EKG: Normal Age: > 65 Risk factors: > 3 risk factors or hx of atherosclerotic disease Troponin: Troponin T 0.011 ng/mL (0.00-0.029) 11/26/20 10:49 Troponin: < normal limit Results - Labs CBC & Chem 7: 11/28/20 05:57 11/28/20 05:57 Labs: Laboratory Last Values WBC 5.2 K/mm3 (4.5-11.0) 11/28/20 05:57 RBC 2.93 M/mm3 (3.65-5.03) L 11/28/20 05:57 Hgb 8.9 gm/dl (10.1-14.3) L 11/28/20 05:57 Hct 27.0 % (30.3-42.9) L 11/28/20 05:57 MCV 92 fl (79-97) 11/28/20 05:57 MCH 30 pg (28-32) 11/28/20 05:57 MCHC 33 % (30-34) 11/28/20 05:57 RDW 16.8 % (13.2-15.2) H 11/28/20 05:57 Plt Count 395 K/mm3 (140-440) 11/28/20 05:57 Lymph % (Auto) 16.3 % (13.4-35.0) 11/27/20 05:35 [place] % (Auto) 8.7 % (0.0-7.3) H 11/27/20 05:35 Eos % (Auto) 1.1 % (0.0-4.3) 11/27/20 05:35 Baso % (Auto) 0.9 % (0.0-1.8) 11/27/20 05:35 Lymph # (Auto) 1.0 K/mm3 (1.2-5.4) L 11/27/20 05:35 [place] # (Auto) 0.5 K/mm3 (0.0-0.8) 11/27/20 05:35 Eos # (Auto) 0.1 K/mm3 (0.0-0.4) 11/27/20 05:35 Baso # (Auto) 0.1 K/mm3 (0.0-0.1) 11/27/20 05:35 Seg Neutrophils % 73.0 % (40.0-70.0) H 11/27/20 05:35 Seg Neutrophils # 4.3 K/mm3 (1.8-7.7) 11/27/20 05:35 PT 26.1 Sec. (12.2-14.9) H 11/26/20 14:42 INR 2.36 (0.87-1.13) H 11/26/20 14:42 APTT 30.9 Sec. (24.2-36.6) 11/26/20 14:42 D-Dimer 5721.78 ng/mlDDU (0-234) H 11/26/20 01:09 Sodium 139 mmol/L (137-145) 11/28/20 05:57 Potassium 3.7 mmol/L (3.6-5.0) 11/28/20 05:57 Chloride 98.2 mmol/L (98-107) 11/28/20 05:57 Carbon Dioxide 30 mmol/L (22-30) 11/28/20 05:57 Anion Gap 15 mmol/L 11/28/20 05:57 BUN 40 mg/dL (7-17) H 11/28/20 05:57 Creatinine 1.8 mg/dL (0.6-1.2) H 11/28/20 05:57 Estimated GFR 27 ml/min 11/28/20 05:57 BUN/Creatinine Ratio 22 % 11/28/20 05:57 Glucose 92 mg/dL (65-100) 11/28/20 05:57 POC Glucose 145 mg/dL (70-105) H 11/28/20 16:00 Calcium 8.7 mg/dL (8.4-10.2) 11/28/20 05:57 Phosphorus 5.00 mg/dL (2.5-4.5) H 11/27/20 05:35 Iron 18 ug/dL (37-170) L 11/27/20 05:35 TIBC 348 mcg/dL (250-450) 11/27/20 05:35 Total Bilirubin 0.90 mg/dL (0.1-1.2) 11/28/20 05:57 Direct Bilirubin 0.3 mg/dL (0-0.2) H 11/28/20 05:57 Indirect Bilirubin 0.6 mg/dL 11/28/20 05:57 AST 473 units/L (5-40) H 11/28/20 05:57 ALT 783 units/L (7-56) H 11/28/20 05:57 Alkaline Phosphatase 109 units/L (35-129) 11/28/20 05:57 Troponin T 0.011 ng/mL (0.00-0.029) 11/26/20 10:49 NT-Pro-B Natriuret Pep 4891 pg/mL (0-900) H 11/26/20 01:09 Total Protein 5.9 g/dL (6.3-8.2) L 11/28/20 05:57 Albumin 3.5 g/dL (3.9-5) L 11/28/20 05:57 Albumin/Globulin Ratio 1.5 % 11/28/20 05:57 Triglycerides 75 mg/dL (2-149) 11/26/20 04:35 Cholesterol 155 mg/dL (50-199) 11/26/20 04:35 LDL Cholesterol Direct 117 mg/dL (50-130) 11/26/20 04:35 HDL Cholesterol 33 mg/dL (40-59) L 11/26/20 04:35 Cholesterol/HDL Ratio 4.69 % 11/26/20 04:35 Hep Bs Antigen Non-reactive (Negative) 11/27/20 05:35 Hepatitis C Antibody Non-reactive (NonReactive) 11/27/20 04:50 [place]/IV: Voiding Method Toilet Active Medications - Current Medications Current Medications: Generic Name Dose Route Start Last Admin Trade Name Freq PRN Reason Stop Dose Admin Acetaminophen 650 mg 11/26/20 02:29 Acetaminophen 325 Mg Tab PO Q4H PRN Pain MILD(1-3)/Fever >100.5/LOPEZ Albuterol 2.5 mg 11/28/20 12:00 Albuterol 2.5 Mg/3 Ml Nebu IH Q4HRT PRN Shortness Of Breath Albuterol/Ipratropium 1 ampul 11/28/20 20:00 Ipratropium/Albuterol Sulfate 3 Ml Ampul.Neb IH Q12HRT CARLEEN Apixaban 5 mg 11/26/20 22:00 11/28/20 11:05 Apixaban 5 Mg Tab PO 5 mg Q12HR CARLEEN Administration Protocol Dextrose 0 ml 11/26/20 02:29 Dextrose 50% In Water (25gm) 50 Ml Syringe IV Q30MIN PRN Hypoglycemia Protocol Furosemide 40 mg 11/26/20 11:00 11/28/20 06:10 Furosemide 40 Mg/4 Ml Inj IV 40 mg 0600,1800 CARLEEN Administration Insulin Human Lispro 0 unit 11/26/20 07:30 11/28/20 17:55 Insulin Lispro 100 Unit/Ml SUB-Q Not Given ACHS COUNTS INCLUDE 234 BEDS AT [facility] Protocol Isosorbide Dinitrate/Hydralazine 1 each 11/26/20 15:00 11/28/20 15:36 Isosorb Dinit/Hydralazine 20-37.5mg Tab PO Not Given Q8HR CARLEEN Metoprolol Tartrate 25 mg 11/26/20 15:00 11/28/20 17:55 Metoprolol Tartrate 25 Mg Tab PO Not Given Q8H CARLEEN Morphine Sulfate 2 mg 11/26/20 02:29 Morphine 2 Mg/1 Ml Inj IV Q4H PRN Pain, Moderate (4-6) Multivitamins 1 each 11/26/20 12:00 11/28/20 11:05 Multivitamins ,Therapeutic Tab PO 1 each QDAY CARLEEN Administration Multivitamins/Iron 1 each 11/28/20 10:00 11/28/20 11:08 Fe Fumarate/Fa/Mv, Min Comb#15 Cap (Hemocyte Plus) PO Not Given QDAY CARLEEN Ondansetron HCl 4 mg 11/26/20 02:29 Ondansetron 4 Mg/2 Ml Inj IV Q8H PRN Nausea And Vomiting Pantoprazole Sodium 40 mg 11/26/20 10:00 11/28/20 11:05 Pantoprazole 40 Mg Tab PO 40 mg QDAY CARLEEN Administration Sodium Chloride 10 ml 11/26/20 10:00 11/27/20 22:14 Sodium Chloride 0.9% 10 Ml Flush Syringe IV 10 ml BID CARLEEN Administration Sodium Chloride 10 ml 11/26/20 02:29 Sodium Chloride 0.9% 10 Ml Flush Syringe IV PRN PRN LINE FLUSH Tramadol HCl 50 mg 11/26/20 02:29 Tramadol 50 Mg Tab PO Q6H PRN Pain, Moderate (4-6) Nutrition/Malnutrition Assess - Dietary Evaluation Nutrition/Malnutrition Findings: Nutrition Notes Start: 11/26/20 14:18 Freq: Status: Active Protocol: Document 11/28/20 12:05 (Rec: 11/28/20 12:09 [id number]) Nutrition Notes Initial or Follow up Reassessment Current Diagnosis Acute Kidney Injury,Diabetes, Hypertension Other Pertinent Diagnosis anemia, a fib Current Diet cardiac, consistent Labs/Tests BUN 40 Cr 1.8 BG 341 Pertinent Medications Reviewed Height 5 ft Weight 63 kg [place] Body Weight (kg) 45.45 BMI 27.1 Weight change and time frame wt change noted, will follow for trends Weight Status Overweight Subjective/Other Information FU for intakes. Pt eating 25% of meals and drank 1 ONS. Percent of energy/protein needs met: 55%/43% Burn Absent Trauma Absent GI Symptoms None Current % PO Poor (25-49%) Minimum of two criteria No Energy Intake (non-severe) <75% Estimated Energy Requirement >7 days #1 Nutrition Diagnosis Inadequate oral intake As Evidenced by Signs and Symptoms pt eating 25% of meals Diagnosis Progress(for reassessment Improved documentation) Is patient on ventilator? No Is Patient Ambulatory and/or Out of Bed Yes REE-([place]-St. Jeor-ambulatory/OOB) [ 1347.450 [id number]] Calculation Used for Recommendations [facility] Additional Notes Protein: (1-1.2g/kg) 68-81g Fluid: 1 ml/kcal Nutrition Intervention Change Diet Order: Continue Add Supplement/Snack (indicate name/kcal Glucerna TID /protein ) Provides kCal: 660 Provides Protein (gm) 30 Goal #1 Meet at least 75% of energy and protein needs via PO and ONS Anticipated Discharge Needs: Cardiac, consistent Follow-Up By: 12/02/20 Additional Comments FU for intakes and ONS tolerance
[2020-11-29] MEDS: ISOSORB DINIT/HYDRALAZINE 20-37.5MG TAB PO SCH ×2 (05:07→13:21)
[2020-11-29] MEDS: FUROSEMIDE 40 MG/4 ML INJ IV SCH (06:07)
[2020-11-29] MEDS: METOPROLOL TARTRATE 25 MG TAB PO SCH (06:08)
[2020-11-29] MEDS: IPRATROPIUM/ALBUTEROL SULFATE 3 ML AMPUL.NEB IH SCH (08:07)
[2020-11-29 09:15] LABS: Calcium 8.8 mg/dL (8.4-10.2)
[2020-11-29] MEDS: INSULIN LISPRO 100 UNIT/ML SUB-Q SCH ×2 (09:19→13:21)
[2020-11-29] MEDS: MULTIVITAMINS ,THERAPEUTIC TAB PO SCH (09:29)
[2020-11-29] MEDS: PANTOPRAZOLE 40 MG TAB PO SCH (09:29)
[2020-11-29] MEDS: APIXABAN 5 MG TAB PO SCH (09:29)
[2020-11-29] MEDS: FE FUMARATE/FA/MV, MIN COMB#15 CAP (HEMOCYTE PLUS) PO SCH (09:29)
[2020-11-29 10:57] VITALS: BP 101/62
--- NOTE | 2020-11-29 11:51 | Progress Note ---
Assessment and Plan Assessment Chest Pain THERESE on CKD Hypertension Diabetes Mellitus type 2 non-insulin Anemia Hyperkalemia Plan: Renal function reviewed, SCr level was 1.5 today, yesterday's SCR level was 1.8 Per notes, patient stated she was told in [place] that she had abnormal renal labs but never followed up with a arabic teacher On lasix 40 mg IV BID Renal ultrasound showed mild left pelvocaliectasis and tiny left renal cyst Recommend Urology evaluation as an outpatient Obtain urine lytes, protein and eosinophils pending Monitor I/O's daily [place] Catheter: No Renal plan reviewed by Dr Kang Subjective Date of service: 11/29/20 Principal diagnosis: abnl LFTs, anemia Interval history: Pt seen sitting up on the side of the bed, awake, pt doesn't speak Macanese, no acute distress Objective - Vital Signs Vital signs: Vital Signs - 12hr 11/29/20 11/29/20 11/29/20 01:27 04:00 04:25 Temperature 98.4 F 97.8 F Pulse Rate 117 H 117 H 110 H Respiratory 18 18 Rate Blood Pressure 105/65 122/62 Blood Pressure [Right] O2 Sat by Pulse 98 97 Oximetry 11/29/20 11/29/20 11/29/20 05:07 06:08 07:36 Temperature Pulse Rate 110 H 110 H Respiratory Rate Blood Pressure 122/62 122/62 Blood Pressure [Right] O2 Sat by Pulse 97 Oximetry 11/29/20 11/29/20 08:00 08:56 Temperature 98.1 F 97.4 F L Pulse Rate 96 H 77 Respiratory 20 20 Rate Blood Pressure 98/52 Blood Pressure 101/62 [Right] O2 Sat by Pulse 98 98 Oximetry - General Appearance General appearance: well-developed EENT: ATNC Respiratory: Present: Clear to Ascultation Cardiology: regular, S1S2 Gastrointestinal: normoactive bowel sounds Integumentary: warm and dry Neurologic: other (awake, alert, pt doesn't speak Macanese) Musculoskeletal: other (no edema to BLE) - Lab 11/28/20 05:57 11/29/20 08:11 Most recent lab results Calcium 8.8 mg/dL (8.4-10.2) 11/29/20 08:11 Phosphorus 5.00 mg/dL (2.5-4.5) H 11/27/20 05:35 Medications & Allergies - Medications Allergies/Adverse Reactions: Allergies No Known Allergies Allergy (Unverified 11/25/20 22:43) Home Medications: Home Medications Medication Instructions Recorded Confirmed Last Taken Type glyBURIDE [Diabeta] 5 mg PO DAILY 11/26/20 11/26/20 Unknown History metFORMIN [Glucophage] 850 mg PO BID 11/26/20 11/26/20 Unknown History Acetaminophen [Acetaminophen TAB] 650 mg PO Q4H PRN tablet 11/29/20 Unknown Rx Apixaban [Eliquis] 5 mg PO DAILY 30 Days #60 11/29/20 Unknown Rx Apixaban [Eliquis] 5 mg PO Q12HR tablet 11/29/20 Unknown Rx Furosemide [Lasix TAB] 20 mg PO QDAY 30 Days #30 11/29/20 Unknown Rx Isosorb Dinit/Hydralazine [Bidil 1 each PO Q8HR 30 Days #90 tablet 11/29/20 Unknown Rx 20/37.5MG] Metoprolol [Lopressor TAB] 25 mg PO Q8H 30 Days #90 tablet 11/29/20 Unknown Rx Active Medications: Generic Name Dose Route Start Last Admin Trade Name Freq PRN Reason Stop Dose Admin Acetaminophen 650 mg 11/26/20 02:29 Acetaminophen 325 Mg Tab PO Q4H PRN Pain MILD(1-3)/Fever >100.5/LOPEZ Albuterol 2.5 mg 11/28/20 12:00 Albuterol 2.5 Mg/3 Ml Nebu IH Q4HRT PRN Shortness Of Breath Albuterol/Ipratropium 1 ampul 11/28/20 20:00 11/29/20 08:07 Ipratropium/Albuterol Sulfate 3 Ml Ampul.Neb IH 1 ampul Q12HRT CARLEEN Administration Apixaban 5 mg 11/26/20 22:00 11/29/20 09:29 Apixaban 5 Mg Tab PO 5 mg Q12HR CARLEEN Administration Protocol Dextrose 0 ml 11/26/20 02:29 Dextrose 50% In Water (25gm) 50 Ml Syringe IV Q30MIN PRN Hypoglycemia Protocol Furosemide 40 mg 11/26/20 11:00 11/29/20 06:07 Furosemide 40 Mg/4 Ml Inj IV 40 mg 0600,1800 CARLEEN Administration Insulin Human Lispro 0 unit 11/26/20 07:30 11/29/20 09:19 Insulin Lispro 100 Unit/Ml SUB-Q Not Given ACHS CARLEEN Protocol Isosorbide Dinitrate/Hydralazine 1 each 11/26/20 15:00 11/29/20 05:07 Isosorb Dinit/Hydralazine 20-37.5mg Tab PO 1 each Q8HR CARLEEN Administration Metoprolol Tartrate 25 mg 11/26/20 15:00 11/29/20 06:08 Metoprolol Tartrate 25 Mg Tab PO 25 mg Q8H CARLEEN Administration Morphine Sulfate 2 mg 11/26/20 02:29 Morphine 2 Mg/1 Ml Inj IV Q4H PRN Pain, Moderate (4-6) Multivitamins 1 each 11/26/20 12:00 11/29/20 09:29 Multivitamins ,Therapeutic Tab PO 1 each QDAY CARLEEN Administration Multivitamins/Iron 1 each 11/28/20 10:00 11/29/20 09:29 Fe Fumarate/Fa/Mv, Min Comb#15 Cap (Hemocyte Plus) PO 1 each QDAY CARLEEN Administration Ondansetron HCl 4 mg 11/26/20 02:29 Ondansetron 4 Mg/2 Ml Inj IV Q8H PRN Nausea And Vomiting Pantoprazole Sodium 40 mg 11/26/20 10:00 11/29/20 09:29 Pantoprazole 40 Mg Tab PO 40 mg QDAY CARLEEN Administration Sodium Chloride 10 ml 11/26/20 10:00 11/29/20 09:30 Sodium Chloride 0.9% 10 Ml Flush Syringe IV 10 ml BID CARLEEN Administration Sodium Chloride 10 ml 11/26/20 02:29 Sodium Chloride 0.9% 10 Ml Flush Syringe IV PRN PRN LINE FLUSH Tramadol HCl 50 mg 11/26/20 02:29 Tramadol 50 Mg Tab PO Q6H PRN Pain, Moderate (4-6)
--- NOTE | 2020-11-29 12:03 | Discharge Summary ---
Providers - Providers Date of Admission: 11/27/20 15:52 Date of discharge: 11/29/20 Attending physician: ARLETTE LEDBETTER MD 11/26/20 Consult to Cardiac Rehabilitation [CONS] Routine Reason For Exam: Phase I 11/26/20 02:29 Consult to Cardiology [CONS] Routine Consulting Provider: ADILENE CHAUDHARI Reason For Exam: Chest pain Consult to Dietitian/Nutrition [CONS] Routine Physician Instructions: Reason For Exam: Reason for Consult: Diet education 11/26/20 02:36 Consult to Physician [CONS] Routine Comment: Consulting Provider: JONO ROTHMAN Physician Instructions: Reason For Exam: therese 11/26/20 02:49 Consult to Physician [CONS] Routine Comment: Consulting Provider: STEFANIE FLETCHER Physician Instructions: Reason For Exam: abnormal LFT Primary care physician: ANISHA WRAY Hospitalization Condition: Stable Hospital course: Assessment and plan: This is 75-year-old Sami-speaking female with past medical history of hypertension, diabetes, A. fib, presents to the ED with chest pain since 9 PM while at rest. Patient also reports associated shortness of breath and significant swelling to bilateral feet and lower legs. In the ER work-up shows THERESE, hyperkalemia, normal troponin and elevated BNP, --Acute chest pain, cardiology following, medical management for now --Acute exacerbation of systolic CHF, continue diuresis, 2D echo showed EF 20 to 25% --Atrial fibrillation, rate controlled, continue Eliquis --Elevated LFT, likely due to right-sided heart failure and amiodarone which is now discontinued --THERESE on CKD, likely cardiorenal syndrome versus vasomotor nephropathy, monitor renal function, nephrology following --Hyperkalemia due to declining renal function, s/p hyperkalemia protocol, resolved --Hypokalemia, monitor BMP --Diabetes mellitus type 2, consistent carb diet, sliding scale of insulin --Hypertension, monitor BP and adjust medications as needed --Anemia of chronic disease, monitor H&H --DVT, patient on Eliquis Daily clinical course: 11/26/20: In the ER work-up shows THERESE, hyperkalemia, normal troponin and elevated BNP Nephrology consulted, patient placed on hyperkalemia protocol Cardiology consulted, 2D echo ordered Discussed plan of care with patient with client customer manager by telephone Patient complains of abdominal pain and lower extremity swelling Vitals appears to be stable, potassium level improved CTABL, no wheezes Wait for echocardiogram result, continue IV Lasix for now 11/27/20: Denies any chest pain or abdominal pain. Continue to monitor LFT and BMP. 2D echo showed EF 20 to 25%. GI following for elevated liver function. Discontinued amiodarone for elevated LFT, continue Eliquis for chronic atrial fibrillation. Continue diuretics, monitor ins and outs, monitor daily weights and follow renal function closely. 11/28/20: Will follow subspecialist recs. PLan for possible d/c today or tomorrow. 11/29/20: patient doing well on encounter. resting comfortably on room air. Will discharge home with recommendations to follow with nephrology and cardiology outpatient. Disposition: - TO HOME OR SELFCARE Final Discharge Diagnosis (Prints w/discharge instructions): Acute Decompensated Heart Failure - Discharge Diagnoses (1) Chronic atrial fibrillation Status: Acute (2) Dilated cardiomyopathy Status: Acute (3) Iron deficiency anemia due to chronic blood loss Status: Acute (4) Abdominal pain Status: Acute (5) DVT prophylaxis Status: Acute (6) Diabetes Status: Acute Core Measure Documentation - Palliative Care Palliative Care/ Comfort Measures: Not Applicable - Core Measures Any of the following diagnoses?: none Exam - Physical Exam Narrative exam: General: No Apparent Distress HEENT: Positive: PERRL Neck: Positive: neck supple, trachea midline Cardiac: Positive: irregularly irregular Lungs: Positive: Decreased Breath Sounds Neuro: Positive: Grossly Intact Abdomen: Positive: Soft Skin: Positive: Clear Extremities: Absent: edema - Constitutional Vitals: Temp Pulse Resp BP Pulse Ox 97.4 F L 77 20 98/52 98 11/29/20 08:56 11/29/20 08:56 11/29/20 08:56 11/29/20 08:56 11/29/20 08:56 Plan Activity: no restrictions Weight Bearing Status: Weight Bear as Tolerated Diet: low fat, low cholesterol, low salt, diabetic Special Instructions: restrict fluid intake to (less than 1.5 L daily), record daily weights, record daily BP diary, record blood sugar diary Plan of Treatment: Danay Dobbins. You were admitted for congestive heart failure and acute kidney injury. Cardiology and nephrology saw you this hospital visit. An echo ordered demonstrated that your heart function (ejection fraction) was 20 to 25%. They determine that your symptoms were likely due to your longstanding history of dilated cardiomyopathy. Shellfish Processing Machine Tender also treated you for atrial fibrillation. you are on a medication called amiodarone initially. However due to elevation in your liver enzymes this medication was discontinued in the hospital and your liver enzymes have subsequently improved. Gastroenterology evaluated you and agreed with this assessment. Your kidney function was noted to be decreased. You have been told in the past that you have decreased kidney function. We recommend you follow-up with a kidney doctor. Avoid any medication that may cause harm to your kidney and please consult with your kidney doctor if you have any questions in regards to this. We recommend you follow-up with a marker delivery after this hospital admission as well. We will be sending you home with prescription for Eliquis for atrial fibrillation, metoprolol for atrial fibrillation, BiDil for hypertension, furosemide for CHF. Please follow-up with your primary care doctor in 3 to 5 days. Follow up with: ANISHA WRAY MD [Primary Care Provider] - 7 Days Prescriptions: Isosorb Dinit/Hydralazine [Bidil 20/37.5MG] 1 each PO Q8HR 30 Days #90 tablet Apixaban [Eliquis] 5 mg PO DAILY 30 Days #60 Furosemide [Lasix TAB] 20 mg PO QDAY 30 Days #30 Metoprolol [Lopressor TAB] 25 mg PO Q8H 30 Days #90 tablet
--- NOTE | 2020-11-29 13:12 | Progress Note ---
Assessment and Plan - Patient Problems (1) Chronic atrial fibrillation Current Visit: Yes Status: Acute Plan to address problem: We will continue rate control strategy of chronic atrial fibrillation and oral anticoagulation with Eliquis. We discontinued amiodarone on presentation for elevated liver enzymes. (2) Dilated cardiomyopathy Current Visit: Yes Status: Acute Plan to address problem: Optimal medical therapy for longstanding dilated cardiomyopathy and chronic systolic left ventricular failure. Patient will be strongly recommended for outpatient cardiac follow-up for further management of chronic left ventricular systolic failure including device therapies as indicated. Subjective Date of service: 11/29/20 Principal diagnosis: abnl LFTs, anemia Interval history: Patient is comfortable no acute distress, no cardiac complaints. Looks and feels well. Objective Vital Signs Temp Pulse Pulse Resp Resp BP BP 11/29/20 08:56 97.4 F L 77 20 98/52 11/29/20 08:00 98.1 F 96 H 20 101/62 11/29/20 07:36 11/29/20 06:08 110 H 122/62 11/29/20 05:07 110 H 122/62 11/29/20 04:25 97.8 F 110 H 18 122/62 11/29/20 04:00 117 H 11/29/20 01:27 98.4 F 117 H 18 105/65 11/28/20 22:04 47 L 101/57 11/28/20 22:00 11/28/20 21:22 47 L 101/57 11/28/20 20:44 97.8 F 47 L 18 101/58 11/28/20 20:22 103 H 15 11/28/20 17:55 99/51 11/28/20 16:04 107 H 99/41 11/28/20 16:00 105 H 11/28/20 15:36 101/56 Pulse Ox 11/29/20 08:56 98 11/29/20 08:00 98 11/29/20 07:36 97 11/29/20 06:08 11/29/20 05:07 11/29/20 04:25 97 11/29/20 04:00 11/29/20 01:27 98 11/28/20 22:04 11/28/20 22:00 97 11/28/20 21:22 11/28/20 20:44 95 11/28/20 20:22 11/28/20 17:55 07/16/21 16:04 97 11/28/20 16:00 11/28/20 15:36 - Physical Examination General: No Apparent Distress HEENT: Positive: PERRL Neck: Positive: neck supple, trachea midline Cardiac: Positive: irregularly irregular Lungs: Positive: Decreased Breath Sounds Neuro: Positive: Grossly Intact Abdomen: Positive: Soft Skin: Positive: Clear Extremities: Absent: edema - Labs and Meds Comprehensive Metabolic Panel 11/29/20 11/29/20 Range/Units 08:11 08:11 Sodium 137 (137-145) mmol/L Potassium 3.9 (3.6-5.0) mmol/L Chloride 91.7 L (98-107) mmol/L Carbon Dioxide 33 H (22-30) mmol/L BUN 36 H (7-17) mg/dL Creatinine 1.4 H 1.5 H (0.6-1.2) mg/dL Glucose 141 H (65-100) mg/dL Calcium 8.8 (8.4-10.2) mg/dL
== END 2020-11-29 17:00 | disposition home or self-care (01) | DRG 682 ==
LOC: ED 22:23 → 4A 11-26 02:29 → OBSVTOIN 11-27 15:52
PROVIDERS: ADMIT Hospitalist; ATTEND Internal Medicine
DX: N17.9 Acute kidney failure, unspecified (principal); I50.23 Acute on chronic systolic (congestive) heart failure; D68.9 Coagulation defect, unspecified; I24.9 Acute ischemic heart disease, unspecified; I13.0 Hypertensive heart and chronic kidney disease with heart failure and stage 1 through stage 4 chronic kidney disease, or unspecified chronic kidney disease; I42.0 Dilated cardiomyopathy; I48.20 Chronic atrial fibrillation, unspecified; R74.8 Abnormal levels of other serum enzymes; R07.9 Chest pain, unspecified; E87.5 Hyperkalemia; E11.9 Type 2 diabetes mellitus without complications; E87.70 Fluid overload, unspecified; D50.0 Iron deficiency anemia secondary to blood loss (chronic); E87.6 Hypokalemia; N18.9 Chronic kidney disease, unspecified; R79.89 Other specified abnormal findings of blood chemistry; E11.22 Type 2 diabetes mellitus with diabetic chronic kidney disease; I48.91 Unspecified atrial fibrillation; Z79.899 Other long term (current) drug therapy; Z79.891 Long term (current) use of opiate analgesic; Z79.01 Long term (current) use of anticoagulants; Z79.84 Long term (current) use of oral hypoglycemic drugs; Z90.710 Acquired absence of both cervix and uterus
CPT/HCPCS: 36415; 71045; 76705; 76770; 78580; 80048; 80053; 80061; 80076; 82565; 82962; 83550; 83880; 84100; 84132; 84484; 85025; 85027; 85379; 85610; 85730; 86706; 86803; 93005; 93306; 94640; 96374; G0378; A9540; J0610; J1815; J1940